=== PATIENT | female | born 1955 | race Caucasian/White ===

== ENCOUNTER → 2021-05-21 11:47 | Outpatient (CLI) | payer MEDICARE, SELFPAY ==
[2021-05-21 21:53] LABS: Vitamin B12 300 pg/mL (239-931)
== END ==
PROVIDERS: PCP Physician Assistant; Visit Provider Physician Assistant
DX: M19.90 Unspecified osteoarthritis, unspecified site (principal)
CPT/HCPCS: 82607

== ENCOUNTER → 2021-09-10 08:03 | Outpatient (CLI) | payer MEDICARE, SELFPAY ==
[2021-09-10 18:54] LABS: Add Manual Diff / Slide Review NO; Basophils Absolute Auto 0 /uL (0-100); Basophils Percent Auto 0.3 % (0-2); Eosinophils Absolute Auto 0 /uL (0-450); Eosinophils Percent Auto 0.9 % (2-4); Hematocrit 37.4 % (36-46); Hemoglobin 11.9 g/dL (12.0-16.0); Lymphocytes Absolute Auto 1200 /uL (1100-4500); Lymphocytes Percent Auto 27.2 % (25-40); Mean Corpuscular HGB Conc 31.9 % (30-36); Mean Corpuscular Hemoglobin 28.5 PG (26-34); Mean Corpuscular Volume 89.5 fL (80-100); Monocytes Absolute Auto 300 /uL (0-900); Monocytes Percent Auto 7.1 % (3-14); Neutrophils Absolute Auto 2800 /uL (1500-7000); Neutrophils Percent Auto 64.5 % (50-75); Platelet Count 230 X10^3/uL (150-400); Red Blood Cell Count 4.18 X10^6/uL (4.0-5.2); Red Cell Distribution Width 16.5 % (11.6-14.8); White Blood Cell Count 4.4 X10^3/uL (4.5-11.0)
[2021-09-10 19:00] LABS: Alanine Aminotransferase 17 IU/L (<35); Albumin 3.9 g/dL (3.5-5.0); Albumin Globulin Ratio 1.5 (1.0-2.8); Alkaline Phosphatase 72 U/L (38-126); Aspartate Aminotransferase 23 IU/L (14-36); Bilirubin Total 0.3 mg/dL (0.2-1.3); Blood Urea Nitrogen 15 mg/dL (7-17); Calcium 8.8 mg/dL (8.4-10.2); Carbon Dioxide 25 mmol/L (22-32); Chloride 109 mmol/L (98-107); Cholesterol 168 mg/dL (140-199); Estimated Glomerular Filt Rate > 60.0 mL/min (>60); Globulin 2.6 g/dL (1.7-4.1); Glucose 123 mg/dL (80-110); HDL Cholesterol 59 mg/dL (40-60); HEMOLYSIS < 15 (0-50); LDL Cholesterol Calculated 95 mg/dL (<100); Potassium 3.9 mmol/L (3.4-5.1); Sodium 143 mmol/L (137-145); Total Protein 6.5 g/dL (6.3-8.2); Triglycerides 68 mg/dL (35-150)
[2021-09-10 19:05] LABS: Hemoglobin A1C% w Est Avg Glu 5.6 % (4.0-6.0)
[2021-09-10 19:57] LABS: Vitamin B12 994 pg/mL (239-931)
[2021-09-11 20:10] LABS: Hep C Virus Ab w/Reflex Quant NEGATIVE s/c (NEGATIVE)
== END ==
PROVIDERS: PCP Physician Assistant; Visit Provider Physician Assistant
DX: Z11.59 Encounter for screening for other viral diseases (principal); Z13.1 Encounter for screening for diabetes mellitus; E53.8 Deficiency of other specified B group vitamins; F41.8 Other specified anxiety disorders; R53.83 Other fatigue; Z13.220 Encounter for screening for lipoid disorders
CPT/HCPCS: 80053; 80061; 82607; 83036; 84443; 85025; 86803

== ENCOUNTER → 2021-09-12 11:04 | Outpatient (CLI) | payer MEDICARE, SELFPAY ==
[2021-09-12 19:01] LABS: Erythrocyte Sedimentation Rate 21 MM/HR (0-20)
[2021-09-14 08:18] LABS: RPR Screen Non Reactive (Non Reactive)
[2021-09-18 05:58] LABS: Rheumatoid Factor < 8.6 IU/mL (<12.0)
== END ==
PROVIDERS: PCP Physician Assistant; Visit Provider Family Medicine
DX: D72.819 Decreased white blood cell count, unspecified (principal); E53.8 Deficiency of other specified B group vitamins; M19.90 Unspecified osteoarthritis, unspecified site; M79.641 Pain in right hand; R53.83 Other fatigue
CPT/HCPCS: 85651; 86430; 86592

== ENCOUNTER → 2022-01-27 13:34 | Outpatient (CLI) | payer MEDICARE, SELFPAY ==
[2022-01-27 19:26] LABS: Add Manual Diff / Slide Review NO; Basophils Absolute Auto 0 /uL (0-100); Basophils Percent Auto 0.2 % (0-2); Eosinophils Absolute Auto 0 /uL (0-450); Eosinophils Percent Auto 0.7 % (2-4); Hematocrit 36.5 % (36-46); Hemoglobin 11.7 g/dL (12.0-16.0); Lymphocytes Absolute Auto 1200 /uL (1100-4500); Lymphocytes Percent Auto 27.5 % (25-40); Mean Corpuscular HGB Conc 32.2 % (30-36); Mean Corpuscular Hemoglobin 28.3 PG (26-34); Monocytes Absolute Auto 300 /uL (0-900); Monocytes Percent Auto 7.8 % (3-14); Neutrophils Absolute Auto 2700 /uL (1500-7000); Neutrophils Percent Auto 63.8 % (50-75); Platelet Count 228 X10^3/uL (150-400); Red Blood Cell Count 4.15 X10^6/uL (4.0-5.2); Red Cell Distribution Width 15.6 % (11.6-14.8); White Blood Cell Count 4.3 X10^3/uL (4.5-11.0)
[2022-01-27 19:44] LABS: Alanine Aminotransferase 16 IU/L (<35); Albumin Globulin Ratio 1.4 (1.0-2.8); Alkaline Phosphatase 78 U/L (38-126); Aspartate Aminotransferase 20 IU/L (14-36); BUN Creatinine Ratio 14.5 (6-22); Bilirubin Total 0.4 mg/dL (0.2-1.3); Blood Urea Nitrogen 11 mg/dL (7-17); Calcium 8.7 mg/dL (8.4-10.2); Carbon Dioxide 26 mmol/L (22-32); Chloride 110 mmol/L (98-107); Estimated Glomerular Filt Rate > 60.0 mL/min (>60); Globulin 2.8 g/dL (1.7-4.1); Glucose 102 mg/dL (80-110); HEMOLYSIS < 15 (0-50); Potassium 3.9 mmol/L (3.4-5.1); Sodium 142 mmol/L (137-145); Total Protein 6.8 g/dL (6.3-8.2)
[2022-01-27 20:05] LABS: Free T4, Direct Thyroxine 1.17 ng/dL (0.78-2.19)
[2022-01-27 20:32] LABS: Vitamin B12 556 pg/mL (239-931)
== END ==
PROVIDERS: PCP Physician Assistant; Visit Provider Physician Assistant
DX: R53.83 Other fatigue (principal); E53.8 Deficiency of other specified B group vitamins
CPT/HCPCS: 80053; 82607; 84439; 84443; 85025

== ENCOUNTER 2022-03-24 11:32 | Emergency (ER) | payer MEDICARE, SELFPAY ==
[2022-03-24 11:45] VITALS: BP 176/78; PULSE 68; RESP 15; TEMP 36.8; O2SAT 99; BMI 38.2
--- NOTE | 2022-03-24 11:56 | DI.US.S_ITS ---
PROCEDURE: US PERIPH VENOUS LOW EXTREM BI INDICATIONS: lower extremity swelling TECHNIQUE: Real-time imaging, as well as color and pulse Doppler interrogation, were performed of the deep veins of both legs from the inguinal ligament to the popliteal fossa. COMPARISON: None. FINDINGS: Right: The common femoral, femoral and popliteal veins are normally compressible, and free of intraluminal thrombus. Color and pulse Doppler demonstrate normal phasic intravascular flow. There is normal augmentation response to distal compression maneuver. Left: The common femoral, femoral and popliteal veins are normally compressible, and free of intraluminal thrombus. Color and pulse Doppler demonstrate normal phasic intravascular flow. There is normal augmentation response to distal compression maneuver. IMPRESSION: No deep vein thrombosis of the bilateral lower extremities. Dictated by: Kasia Roth M.D. on 03/24/2022 at 12:34 Approved by: Kasia Roth M.D. on 03/24/2022 at 12:35
--- NOTE | 2022-03-24 12:25 | DI.RAD.S_ITS ---
PROCEDURE: XR CHEST 1V INDICATIONS: pedal edema TECHNIQUE: One view of the chest was acquired. COMPARISON: None. FINDINGS: Surgical changes and devices: None. Lungs and pleura: Lungs are clear. No pleural effusions or pneumothorax. Mediastinum: Mediastinal contours appear normal. Heart size is enlarged. Bones and chest wall: No suspicious bony lesions. Overlying soft tissues appear unremarkable. IMPRESSION: Cardiomegaly. No acute pulmonary findings. Dictated by: Kasia Roth M.D. on 03/24/2022 at 13:09 Approved by: Kasia Roth M.D. on 03/24/2022 at 13:09
--- NOTE | 2022-03-24 12:26 | ED_ITS ---
HPI - Extremity Problem <J Luis Clark PA-C - Last Filed: 03/24/22 13:58> General Chief complaint: Extremity Problem,Nontraumatic Stated complaint: Swolen legs, ref from phys, potential blood clot Time Seen by Provider: 03/24/22 11:56 Source: patient Mode of arrival: Ambulatory History of Present Illness HPI Narrative: Patient is a 66-year-old female who presents to the ED from the patient's record center coordinator clinic. The physician the patient was seen in recognize that she had some swelling in her lower legs and suggested that she present to the ED for evaluation. Patient reports that she recently had travel overseas to [place] and has been traveling quite extensively. She states that she has a history of swollen legs in the past however most of the time the swelling has resolved. Today she presents to the ED with distal complaint of swelling in her lower extremities. She denies any differences between the left and the right they both are equally swollen. She has no history of previous blood clot or PE or FL or CVA. She is not on any current blood thinners she denies any history of congestive heart failure. She is currently seeing her record center coordinator for GERD and diarrhea. She they are scheduling endoscopy and a colonoscopy to evaluate both these conditions. Patient denies any chest pain denies any shortness of breath denies any cough denies any fever. Related Data Home Medications Medication Instructions Recorded Confirmed acyclovir 5 % topical cream 1 applic topical 5XD 03/11/21 04/02/22 diclofenac sodium 1 % topical gel 4 g topical BID PRN 03/11/21 04/02/22 (Arthritis Pain (diclofenac)) Previous Rx's Medication Instructions Recorded azelastine 205.5 mcg (0.15 %) 1 spray intranasal BID #30 mL 07/31/21 nasal spray fluoxetine 20 mg tablet 60 mg PO DAILY #90 tabs 10/30/21 pramipexole 0.125 mg tablet 0.375 mg PO BEDTIME #270 tabs 10/30/21 topiramate 25 mg tablet 75 mg PO BID chronic migrain #180 10/30/21 tabs valacyclovir 500 mg tablet 500 mg PO DAILY #30 tabs 10/30/21 esomeprazole magnesium 40 mg 40 mg PO BID #60 caps 01/20/22 capsule,delayed release ascorbic acid (vitamin C) 500 mg 500 mg PO DAILY #30 tabs 02/03/22 tablet ferrous sulfate 325 mg (65 mg 325 mg PO DAILY #30 tabs 02/03/22 iron) tablet (FeroSul) hydrochlorothiazide 25 mg tablet 25 mg PO DAILY #30 tabs 04/02/22 Allergies Allergy/AdvReac Type Severity Reaction Status Date / Time calcium Allergy Mild PAIN/DIARRHEA-HIGH Verified 03/24/22 11:50 DOSES CAUSES DIARRHEA pentazocine Allergy Mild HIVES; Verified 03/24/22 11:50 NAUSEA AND VOMITING lactose Allergy Unknown PAIN/DIARRH Verified 03/24/22 11:50 EA shellfish derived Allergy Unknown PAIN/DIARRH Verified 03/24/22 11:50 EA Sulfa (Sulfonamide AdvReac Unknown RASH Verified 03/24/22 11:50 Antibiotics) BANANA Allergy Unknown SWELLING Uncoded 09/08/21 10:44 Review of Systems <J Luis Clark PA-C - Last Filed: 03/24/22 13:58> Review of Systems ROS Unobtainable: All systems reviewed & are unremarkable except as noted in HPI and below Constitutional Constitutional: Denies chills, Denies fatigue, Denies fever(s), Denies frequent falls, Denies lethargy and Denies weakness Eyes Eyes: Denies change in vision, Denies eye discharge, Denies irritation and Denies loss of vision ENT Ears, Nose, Mouth, and Throat: Denies change in voice, Denies dizziness, Denies neck pain, Denies sore throat and Denies throat swelling Cardiovascular Cardiovascular: Denies chest pain, Denies irregular heart rhythm, Reports leg edema, Denies lightheadedness, Denies palpitations, Denies dyspnea, Denies dyspnea on exertion and Denies orthopnea Respiratory Respiratory: Denies cough, Denies dyspnea, Denies dyspnea on exertion and Denies wheezing Gastrointestinal Gastrointestinal: Denies abdominal pain, Denies change in bowel habits, Denies diarrhea, Denies nausea and Denies vomiting Genitourinary Genitourinary: Denies hematuria, Denies flank pain, Denies urinary incontinence and Denies urinary urgency Musculoskeletal Musculoskeletal: Denies back pain, Denies muscle weakness, Denies neck pain, Denies numbness and Denies tingling Integumentary/Breasts Skin/Breast: Denies pruritus, Denies erythema, Denies rash and Denies wounds Neurologic Neurologic: Denies behavioral changes, Denies confusion, Denies dizziness, Denies frequent falls, Denies loss of vision, Denies numbness, Denies tingling and Denies weakness Psychiatric Psychiatric: Denies anxiety, Denies behavioral changes, Denies confusion, Denies depression, Denies homicidal ideation and Denies suicidal ideation Endocrine Endocrine: Denies fatigue, Denies flushing and Denies palpitations Hematologic/Lymphatic Hematologic/Lymphatic: Denies easy bruising Allergic/Immunologic Allergic/Immunologic: Denies urticaria, Denies throat swelling and Denies wheezing Patient History <J Luis Clark PA-C - Last Filed: 03/24/22 13:58> Medical History (Updated 04/08/22 @ 00:01 by ) Arthritis Breast pain Chicken pox Chronic GERD Fractures Hearing loss Herpes simplex vulvovaginitis Measles Mumps Right elbow pain Rubella Sleep apnea Surgical History Anesthesia History of appendectomy (~2007) History of cataract removal with insertion of prosthetic lens (~2011) History of mandibular surgery (~2009) Family History Father Cancer Mother Cancer Multiple sclerosis Social History Smoking Status: Never smoker Smoking Status: Never smoker alcohol intake frequency: a few times a week Substance Use Type: does not use Exam <J Luis Clark PA-C - Last Filed: 03/24/22 13:58> Initial Vital Signs Initial Vital Signs: Vital Signs Temperature 98.3 F 03/24/22 11:45 Pulse Rate 68 03/24/22 11:45 Respiratory Rate 15 03/24/22 11:45 Blood Pressure 176/78 H 03/24/22 11:45 Pulse Oximetry 99 03/24/22 11:45 Oxygen Delivery Method 03/24/22 11:45 Const General: cooperative, healthy appearing, comfortable and well developed Nutritional Appearance: average body habitus Orientation: Orientation [facility] Head: normal to inspection, normocephalic and atraumatic Ears: hearing grossly normal bilaterally and external ears normal Nose: external nose normal Face and sinus: normal facial exam Mouth: oral mucosae normal Teeth and gingiva: dentition normal Throat: posterior oropharynx normal Eyes General: Yes appearance normal, both eyes and all related structures Pupils: PERRL Resp Effort & Inspection: normal respiratory effort and able to speak in complete sentences Auscultation: clear to auscultation bilaterally Cardio Palpation: normal PMI Rate: regular rate Rhythm: regular rhythm Heart Sounds: S1 normal and S2 normal GI Inspection: normal to inspection Palpation: soft Percussion: normal to percussion Auscultation: normal bowel sounds Extrem Right lower extremity: edema Details: non-pitting and 2+ and lower leg Left lower extremity: edema Details: non-pitting and 2+ and lower leg <Carlos Alberto Thompson MD - Last Filed: 05/01/22 01:24> Initial Vital Signs Initial Vital Signs: Vital Signs Temperature 98.3 F 03/24/22 11:45 Pulse Rate 68 03/24/22 11:45 Respiratory Rate 15 03/24/22 11:45 Blood Pressure 176/78 H 03/24/22 11:45 Pulse Oximetry 99 03/24/22 11:45 Oxygen Delivery Method 03/24/22 11:45 Course <J Luis Clark PA-C - Last Filed: 03/24/22 13:58> Orders Ordered: ED Orders 03/24/22 11:56 US periph venous low extrem bi Stat 03/24/22 12:25 Chest [XR chest 1V] Stat EKG-12 Lead Stat 03/24/22 12:40 BNP [NT-proBNP (BNP-Adult 18+)] Stat CBC Auto Diff [Complete Blood Count AUTO DIFF] Stat CMP [Comprehensive Metabolic Panel] Stat DD [D Dimer] Stat cardiac panel [Troponin & CK Cardiac Panel] Stat Vital Signs Vital signs: Vital Signs - 8 hr 03/24/22 11:45 Temperature 98.3 F Pulse Rate 68 Respiratory Rate 15 Blood Pressure 176/78 H Pulse Oximetry 99 <Carlos Alberto Thompson MD - Last Filed: 05/01/22 01:24> Orders Ordered: ED Orders 03/24/22 11:56 US periph venous low extrem bi Stat 03/24/22 12:25 Chest [XR chest 1V] Stat EKG-12 Lead Stat 03/24/22 12:40 BNP [NT-proBNP (BNP-Adult 18+)] Stat CBC Auto Diff [Complete Blood Count AUTO DIFF] Stat CMP [Comprehensive Metabolic Panel] Stat DD [D Dimer] Stat cardiac panel [Troponin & CK Cardiac Panel] Stat Vital Signs Vital signs: Vital Signs - 8 hr 03/24/22 11:45 Temperature 98.3 F Pulse Rate 68 Respiratory Rate 15 Blood Pressure 176/78 H Pulse Oximetry 99 MDM - Extremity (Nontraumatic) <J Luis Clark PA-C - Last Filed: 03/24/22 13:58> Differential Diagnosis Differential diagnosis: Likely lower extremity edema Lab Data Result diagrams: 03/24/22 12:40 03/24/22 12:40 Labs: Lab Results 03/24/22 03/24/22 03/24/22 Range/Units 12:40 12:40 12:40 WBC 5.3 (4.5-11.0) X10^3/uL RBC 3.93 L (4.0-5.2) X10^6/uL Hgb 11.3 L (12.0-16.0) g/dL Hct 34.5 L (36-46) % MCV 87.6 (80-100) fL MCH 28.8 (26-34) PG MCHC 32.9 (30-36) % RDW 15.4 H (11.6-14.8) % Plt Count 237 (150-400) X10^3/uL Neut % (Auto) 60.9 (50-75) % Lymph % (Auto) 30.4 (25-40) % [facility] % (Auto) 7.7 (3-14) % Eos % (Auto) 0.7 L (2-4) % Baso % (Auto) 0.3 (0-2) % Neut # (Auto) 3300 (1955-1586) /uL Lymph # (Auto) 1600 (4578-9858) /uL [facility] # (Auto) 400 (0-900) /uL Eos # (Auto) 0 (0-450) /uL Baso # (Auto) 0 (0-100) /uL D-Dimer 285 H (<230) ng/mL Sodium 144 (137-145) mmol/L Potassium 3.6 (3.4-5.1) mmol/L Chloride 110 H (98-107) mmol/L Carbon Dioxide 25 (22-32) mmol/L BUN 15 (7-17) mg/dL Creatinine 0.67 (0.52-1.04) mg/dL Estimated GFR > 60 (>60) mL/min BUN/Creatinine Ratio 22.4 H (6-22) Glucose 87 (80-110) mg/dL Calcium 8.3 L (8.4-10.2) mg/dL Total Bilirubin 0.3 (0.2-1.3) mg/dL AST 22 (14-36) IU/L ALT 18 (<35) IU/L Alkaline Phosphatase 69 (38-126) U/L Total Creatine Kinase 44 (30-135) U/L CK-MB (CK-2) TNP CK-MB (CK-2) Rel Index TNP Troponin I < 0.012 (0.01-0.034) ng/mL NT-Pro-B Natriuret Pep 364 H (<125) pg/mL Total Protein 6.8 (6.3-8.2) g/dL Albumin 3.9 (3.5-5.0) g/dL Globulin 2.9 (1.7-4.1) g/dL Albumin/Globulin Ratio 1.3 (1.0-2.8) Imaging Data US - DVT: Radiologist's Impression: [place] [address] Ultrasound Report Signed Patient: Sofi Villatoro MR#: [id number] : 1955 Acct:[id number] Age/Sex: 66 / F Date of Service: 03/24/22 Loc: ED Accession Number: [id number] ?? Procedure: US periph venous low extrem bi Ordering Provider: Carlos Alberto Thompson MD PROCEDURE:? US PERIPH VENOUS LOW EXTREM BI ? INDICATIONS:? lower extremity swelling ? TECHNIQUE:? Real-time imaging, as well as color and pulse Doppler interrogation, were performed of the deep veins of both legs from the inguinal ligament to the popliteal fossa.? ? COMPARISON:? None. ? FINDINGS:? ? Right: The common femoral, femoral and popliteal veins are normally compressib le, and free of intraluminal thrombus.? Color and pulse Doppler demonstrate normal phasic intravascular flow.? There is normal augmentation response to distal compression maneuver.? ? Left: The common femoral, femoral and popliteal veins are normally compressible, and free of intraluminal thrombus.? Color and pulse Doppler demonstrate normal phasic intravascular flow.? There is normal augmentation response to distal compression maneuver.? ? ? IMPRESSION:? No deep vein thrombosis of the bilateral lower extremities. ? ? Dictated by: Kasia Roth M.D. on 03/24/2022 at 12:34 ? ? Approved by: Kasia Roth M.D. on 03/24/2022 at 12:35?? Chest x-ray: Radiologist's Impression: [address] [address] XRay Report Signed Patient: Sofi Villatoro MR#: [id number] : 1955 Acct:[id number] Age/Sex: 66 / F Date of Service: 03/24/22 Loc: ED Accession Number: [id number] ?? Procedure: XR chest 1V Ordering Provider: J Luis Clark P.A-C PROCEDURE:? XR CHEST 1V ? INDICATIONS:? pedal edema ? TECHNIQUE:? One view of the chest was acquired.? ? COMPARISON:? None. ? FINDINGS:? ? Surgical changes and devices:? None.? ? Lungs and pleura:? Lungs are clear.? No pleural effusions or pneumothorax.? ? Mediastinum:? Mediastinal contours appear normal.? Heart size is enlarged. ? Bones and chest wall:? No suspicious bony lesions.? Overlying soft tissues appear unremarkable.? ? IMPRESSION:? Cardiomegaly.? No acute pulmonary findings.? ? ? Dictated by: Kasia Roth M.D. on 03/24/2022 at 13:09 ? ? Approved by: Kasia Roth M.D. on 03/24/2022 at 13:09?? MDM Narrative Medical decision making narrative: The patient was evaluated today for swelling of the lower extremities. Patient denied any other symptoms no associated pain redness swelling in both lower extremities was equal. She states that she has had a recent long distance travel from [place] with long episodes of sitting. She states that in the past that she has been able to elevate her extremities and the swelling has gone down but this time has not been affective. Her workup does demonstrate early signs of mild congestive heart failure of which patient does not have any symptoms of chest pain shortness of breath orthopnea. I think it is feasible to prescribe a thiazide diuretic once daily and recommend compression stockings and discharge her home and have her follow-up with her PCP. I spoke with patient about the treatment options she was agreeable she does have compression stockings at home of which she has used in the past and will agree to apply and elevate her feet. Prescription for hydrochlorothiazide was sent to her pharmacy to be taken once daily and she will follow-up with her PCP for further refills and evaluation. <Carlos Alberto Thompson MD - Last Filed: 05/01/22 01:24> Lab Data Labs: Lab Results 03/24/22 03/24/22 03/24/22 Range/Units 12:40 12:40 12:40 WBC 5.3 (4.5-11.0) X10^3/uL RBC 3.93 L (4.0-5.2) X10^6/uL Hgb 11.3 L (12.0-16.0) g/dL Hct 34.5 L (36-46) % MCV 87.6 (80-100) fL MCH 28.8 (26-34) PG MCHC 32.9 (30-36) % RDW 15.4 H (11.6-14.8) % Plt Count 237 (150-400) X10^3/uL Neut % (Auto) 60.9 (50-75) % Lymph % (Auto) 30.4 (25-40) % [facility] % (Auto) 7.7 (3-14) % Eos % (Auto) 0.7 L (2-4) % Baso % (Auto) 0.3 (0-2) % Neut # (Auto) 3300 (3150-8888) /uL Lymph # (Auto) 1600 (1979-5828) /uL [facility] # (Auto) 400 (0-900) /uL Eos # (Auto) 0 (0-450) /uL Baso # (Auto) 0 (0-100) /uL D-Dimer 285 H (<230) ng/mL Sodium 144 (137-145) mmol/L Potassium 3.6 (3.4-5.1) mmol/L Chloride 110 H (98-107) mmol/L Carbon Dioxide 25 (22-32) mmol/L BUN 15 (7-17) mg/dL Creatinine 0.67 (0.52-1.04) mg/dL Estimated GFR > 60 (>60) mL/min BUN/Creatinine Ratio 22.4 H (6-22) Glucose 87 (80-110) mg/dL Calcium 8.3 L (8.4-10.2) mg/dL Total Bilirubin 0.3 (0.2-1.3) mg/dL AST 22 (14-36) IU/L ALT 18 (<35) IU/L Alkaline Phosphatase 69 (38-126) U/L Total Creatine Kinase 44 (30-135) U/L CK-MB (CK-2) TNP CK-MB (CK-2) Rel Index TNP Troponin I < 0.012 (0.01-0.034) ng/mL NT-Pro-B Natriuret Pep 364 H (<125) pg/mL Total Protein 6.8 (6.3-8.2) g/dL Albumin 3.9 (3.5-5.0) g/dL Globulin 2.9 (1.7-4.1) g/dL Albumin/Globulin Ratio 1.3 (1.0-2.8) Discharge Plan Departure Patient Disposition: Home Clinical Impression: Lower extremity edema Instructions: DI for Edema Due to Venous Stasis Activity Restrictions/Additional Instructions: You were seen today for swelling in your lower extremities. The ultrasound did not show any evidence of a DVT and based on your blood work I would recommend a once daily diuretic as well as compression stockings. He states that you have some at home that you can apply and prescription was sent to [facility] at your request. You can worm picker your prescription at your earliest convenience if her symptoms worsen or you have any other for further concerns you can return to the ED otherwise you can follow-up with her PCP. Thank you for the opportunity to care for you today. Prescriptions: No Action ferrous sulfate [FeroSul] 325 mg (65 mg iron) tablet 325 mg PO DAILY Qty: 30 2RF Rx Instructions: Take with vitamin C ascorbic acid (vitamin C) 500 mg tablet 500 mg PO DAILY Qty: 30 2RF Rx Instructions: Take with iron azelastine 205.5 mcg (0.15 %) spray,non-aerosol 1 spray intranasal BID Qty: 30 8RF Rx Instructions: administer into each nostril fluoxetine 20 mg tablet 60 mg PO DAILY Qty: 90 5RF pramipexole 0.125 mg tablet 0.375 mg PO BEDTIME Qty: 270 1RF topiramate 25 mg tablet 75 mg PO BID Qty: 180 5RF Rx Instructions: take 3 tablets twice daily valacyclovir 500 mg tablet 500 mg PO DAILY Qty: 30 5RF Rx Instructions: For outbreak, increase to 500mg twice daily for 3-5 days. esomeprazole magnesium 40 mg capsule,delayed release(DR/EC) 40 mg PO BID Qty: 60 2RF hydrochlorothiazide 25 mg tablet 25 mg PO DAILY Qty: 30 5RF diclofenac sodium [Arthritis Pain (diclofenac)] 1 % gel 4 g topical BID PRN Rx Instructions: apply to single knee, ankle, foot; for foot includes sole/toes/top of foot acyclovir 5 % cream 1 applic topical 5XD Referrals: Lynn Sher PA-C [Primary Care Provider] - <Carlos Alberto Thompson MD - Last Filed: 05/01/22 01:24> Cosign ED Attending Cosignature Attestation: I was immediately available in the department for consultation. ?This documentation has been reviewed and I agree with assessment and plan. Supervised by Carlos Alberto Thompson MD
[2022-03-24 12:57] LABS: Add Manual Diff / Slide Review NO; Basophils Absolute Auto 0 /uL (0-100); Basophils Percent Auto 0.3 % (0-2); Eosinophils Absolute Auto 0 /uL (0-450); Eosinophils Percent Auto 0.7 % (2-4); Hematocrit 34.5 % (36-46); Hemoglobin 11.3 g/dL (12.0-16.0); Lymphocytes Absolute Auto 1600 /uL (1100-4500); Lymphocytes Percent Auto 30.4 % (25-40); Mean Corpuscular HGB Conc 32.9 % (30-36); Mean Corpuscular Hemoglobin 28.8 PG (26-34); Mean Corpuscular Volume 87.6 fL (80-100); Monocytes Absolute Auto 400 /uL (0-900); Monocytes Percent Auto 7.7 % (3-14); Neutrophils Absolute Auto 3300 /uL (1500-7000); Neutrophils Percent Auto 60.9 % (50-75); Platelet Count 237 X10^3/uL (150-400); Red Blood Cell Count 3.93 X10^6/uL (4.0-5.2); Red Cell Distribution Width 15.4 % (11.6-14.8); White Blood Cell Count 5.3 X10^3/uL (4.5-11.0)
[2022-03-24 13:07] LABS: D Dimer 285 ng/mL (<230)
[2022-03-24 13:12] LABS: Alanine Aminotransferase 18 IU/L (<35); Albumin 3.9 g/dL (3.5-5.0); Albumin Globulin Ratio 1.3 (1.0-2.8); Alkaline Phosphatase 69 U/L (38-126); Aspartate Aminotransferase 22 IU/L (14-36); BUN Creatinine Ratio 22.4 (6-22); Bilirubin Total 0.3 mg/dL (0.2-1.3); Blood Urea Nitrogen 15 mg/dL (7-17); Calcium 8.3 mg/dL (8.4-10.2); Carbon Dioxide 25 mmol/L (22-32); Chloride 110 mmol/L (98-107); Creatine Kinase 44 U/L (30-135); Estimated Glomerular Filt Rate > 60 mL/min (>60); Globulin 2.9 g/dL (1.7-4.1); Glucose 87 mg/dL (80-110); HEMOLYSIS < 15 (0-50); Potassium 3.6 mmol/L (3.4-5.1); Sodium 144 mmol/L (137-145); Total Protein 6.8 g/dL (6.3-8.2)
[2022-03-24 13:24] LABS: NT-proBNP (BNP-Adult 18+) 364 pg/mL (<125); Troponin I < 0.012 ng/mL (0.01-0.034)
[2022-03-24 14:04] VITALS: BP 171/72; PULSE 72; O2SAT 96
== END 2022-03-24 14:05 | disposition home or self-care (01) ==
PROVIDERS: Emergency Provider Physician Assistant; PCP Physician Assistant
DX: R60.0 Localized edema (principal)
CPT/HCPCS: 36415; 71045; 80053; 82550; 83880; 84484; 85025; 85379; 93005; 93010; 93970; 99283

== ENCOUNTER → 2022-04-02 11:32 | Outpatient (CLI) | payer MEDICARE, SELFPAY ==
[2022-04-02 18:59] LABS: BUN Creatinine Ratio 22.8 (6-22); Blood Urea Nitrogen 18 mg/dL (7-17); Calcium 8.5 mg/dL (8.4-10.2); Carbon Dioxide 31 mmol/L (22-32); Chloride 105 mmol/L (98-107); Estimated Glomerular Filt Rate > 60 mL/min (>60); Glucose 114 mg/dL (80-110); HEMOLYSIS < 15 (0-50); Potassium 3.3 mmol/L (3.4-5.1); Sodium 143 mmol/L (137-145)
== END ==
PROVIDERS: PCP Physician Assistant; Visit Provider Physician Assistant
DX: I50.9 Heart failure, unspecified (principal); R60.0 Localized edema
CPT/HCPCS: 80048

== ENCOUNTER → 2022-04-09 12:04 | Outpatient (CLI) | payer MEDICARE, SELFPAY ==
[2022-04-09 18:33] LABS: Add Manual Diff / Slide Review NO; Basophils Absolute Auto 0 /uL (0-100); Basophils Percent Auto 0.4 % (0-2); Eosinophils Absolute Auto 0 /uL (0-450); Eosinophils Percent Auto 0.7 % (2-4); Hematocrit 36.8 % (36-46); Hemoglobin 12.1 g/dL (12.0-16.0); Lymphocytes Absolute Auto 1400 /uL (1100-4500); Mean Corpuscular HGB Conc 32.8 % (30-36); Mean Corpuscular Hemoglobin 28.6 PG (26-34); Mean Corpuscular Volume 87.2 fL (80-100); Monocytes Absolute Auto 400 /uL (0-900); Monocytes Percent Auto 8.3 % (3-14); Neutrophils Absolute Auto 3300 /uL (1500-7000); Neutrophils Percent Auto 63.6 % (50-75); Platelet Count 231 X10^3/uL (150-400); Red Blood Cell Count 4.22 X10^6/uL (4.0-5.2); White Blood Cell Count 5.2 X10^3/uL (4.5-11.0)
[2022-04-09 18:34] LABS: BUN Creatinine Ratio 20.7 (6-22); Blood Urea Nitrogen 17 mg/dL (7-17); Calcium 8.7 mg/dL (8.4-10.2); Carbon Dioxide 27 mmol/L (22-32); Chloride 106 mmol/L (98-107); Estimated Glomerular Filt Rate > 60 mL/min (>60); Glucose 81 mg/dL (80-110); HEMOLYSIS < 15 (0-50); Potassium 3.4 mmol/L (3.4-5.1); Sodium 143 mmol/L (137-145)
[2022-04-09 18:40] LABS: HEMOLYSIS < 15 (0-50); Iron 65 ug/dL (37-170)
[2022-04-09 18:52] LABS: Percent Iron Saturation 21 % (15-50); Total Iron Binding Capacity 305 ug/dL (265-497); Transferrin 215 mg/dL (206-381)
[2022-04-09 19:10] LABS: Ferritin 43 ng/mL (11-264)
== END ==
PROVIDERS: PCP Physician Assistant; Visit Provider Physician Assistant
DX: D64.9 Anemia, unspecified (principal); I10 Essential (primary) hypertension; I50.9 Heart failure, unspecified
CPT/HCPCS: 80048; 82728; 83540; 83550; 85025

== ENCOUNTER → 2022-05-27 12:28 | Outpatient (CLI) | payer MEDICARE, SELFPAY ==
[2022-05-27 20:33] LABS: Add Manual Diff / Slide Review NO; Basophils Absolute Auto 0 /uL (0-100); Basophils Percent Auto 0.4 % (0-2); Eosinophils Absolute Auto 0 /uL (0-450); Eosinophils Percent Auto 0.8 % (2-4); Hemoglobin 11.8 g/dL (12.0-16.0); Lymphocytes Absolute Auto 1600 /uL (1100-4500); Lymphocytes Percent Auto 29.7 % (25-40); Mean Corpuscular HGB Conc 32.8 % (30-36); Mean Corpuscular Hemoglobin 28.8 PG (26-34); Mean Corpuscular Volume 87.8 fL (80-100); Monocytes Absolute Auto 400 /uL (0-900); Monocytes Percent Auto 6.8 % (3-14); Neutrophils Absolute Auto 3300 /uL (1500-7000); Neutrophils Percent Auto 62.3 % (50-75); Platelet Count 256 X10^3/uL (150-400); Red Cell Distribution Width 15.6 % (11.6-14.8); White Blood Cell Count 5.3 X10^3/uL (4.5-11.0)
[2022-05-28 05:56] LABS: Ferritin 45 ng/mL (11-264)
[2022-05-28 06:10] LABS: Vitamin B12 Reflex MMA if <400 776 pg/mL (239-931)
== END ==
PROVIDERS: PCP Physician Assistant; Visit Provider Physician Assistant
DX: D64.9 Anemia, unspecified (principal); E53.8 Deficiency of other specified B group vitamins
CPT/HCPCS: 82607; 82728; 85025

== ENCOUNTER → 2022-06-26 10:30 | Outpatient (CLI) | payer MEDICARE, SELFPAY ==
[2022-06-26 11:17] LABS: COVID19 -Nasal RAPID Negative (Negative)
== END ==
PROVIDERS: PCP Physician Assistant; Visit Provider Surgery
DX: Z01.812 Encounter for preprocedural laboratory examination (principal); Z20.822 Contact with and (suspected) exposure to COVID-19
CPT/HCPCS: 87635; C9803

== ENCOUNTER 2022-06-29 11:44 | Day surgery (SDC) | payer MEDICARE, SELFPAY ==
[2022-06-29] VITALS (7 sets, daily range): BP systolic 102–125; BP diastolic 49–70; PULSE 56–66; RESP 16–20; TEMP 36.7–37.4; O2SAT 97–99; BMI 36.6
--- NOTE | 2022-06-29 | PATH_ITS ---
[facility] Accession Number: [id number] . 01 Material submitted: . PART A: duodenum - DUODENUM PART B: gastrointestinal site - ANTRUM PART C: gastrointestinal site - GASTRIC POLYP PART D: colon - ASCENDING COLON POLYP PART E: colon - RANDOM COLON BIOPSIES PART F: colon - SIGMOID POLYP . 01 Diagnosis: A. Duodenum, Biopsy: Duodenal mucosa with no diagnostic abnormality. Negative for active inflammation, features of sprue, dysplasia, or malignancy. . B. Stomach, Antrum, Biopsy: Antral mucosa with mild chronic gastritis. Negative for Helicobacter organisms by immunohistochemistry. Negative for intestinal metaplasia. Negative for dysplasia and malignancy. . C. Stomach, Polyp, Biopsy: Scant superficial gastric epithelium. Negative for intestinal metaplasia. Negative for dysplasia and malignancy. . D. Ascending Colon, Polyp, Biopsy: Tubular adenoma, 2 fragments. . E. Random Colon, Biopsies: Colonic mucosa with no diagnostic abnormality. Negative for active, chronic, and microscopic colitis. Negative for dysplasia and malignancy. . F. Sigmoid Colon, Polyp, Biopsy: Tubular adenoma. [facility] 07/02/2022 1232 Local . 01 Electronically signed: . Mellisa Harris MD, Pathologist NPI- [id number] . 01 Gross description: . Part A: DUODENUM: Received in formalin is 1 fragment(s) of phelan, soft tissue measuring 0.5 x 0.2 x 0.2 cm submitted entirely in 1 cassette(s) Part B: ANTRUM: Received in formalin are 2 fragment(s) of phelan, soft tissue measuring 0.3 x 0.2 x 0.1 cm to 0.2 x 0.1 x 0.1 cm submitted entirely in 1 cassette(s) Part C: GASTRIC POLYP: Received in formalin is 1 fragment(s) of phelan, soft tissue measuring 0.1 x 0.1 x 0.1 cm in aggregate submitted entirely in 1 cassette(s) Minute specimen, may not survive processing. Part D: ASCENDING COLON POLYP: Received in formalin are 2 fragment(s) of phelan, soft tissue measuring 0.3 x 0.2 x 0.1 cm to 0.2 x 0.1 x 0.1 cm submitted entirely in 1 cassette(s) Part E: RANDOM COLON BIOPSIES: Received in formalin are 4 fragment(s) of phelan, soft tissue measuring 0.3 x 0.2 x 0.1 cm to 0.2 x 0.1 x 0.1 cm submitted entirely in 1 cassette(s) Part F: SIGMOID POLYP: Received in formalin is 1 fragment(s) of phelan, soft tissue measuring 0.3 x 0.2 x 0.2 cm submitted entirely in 1 cassette(s) /CPE 06/30/2022 0548 Local . 01 Microscopic: . B. An immunohistochemical stain was performed to evaluate for Helicobacter organisms and is negative. The control stain showed appropriate reactivity. . * This test was developed and its performance characteristics determined by [facility]. It has not been cleared or approved by the U.S. Food and Drug Administration. The FDA has determined that such clearance or approval is not necessary. This test is used for clinical purposes. It should not be regarded as investigational or for research. . 01 Pathologist provided ICD-10: D12.2, D12.5 . 01 CPT . 928859, 143351, 705846, 271409, 715846, 651273, A96177 Specimen Comment: A courtesy copy of this report has been sent to [phone] Performed at: 01 [facility] [address] [place] [address], [place], [place] [id number] MD Ramón Vergara MD Phone: [phone]
--- NOTE | 2022-06-29 12:24 | PM.HP.1 ---
History of Present Illness History of Present Illness Date Patient Seen: 06/29/22 Time Patient Seen: 12:24 Chief complaint: SDC Narrative: I reviewed my recent office note from March 24, 2022. Patient has been experiencing longstanding reflux and chronic diarrhea. I have not seen the labs that I had requested as yet. She reports today for EGD for small bowel biopsies and colonoscopy with random biopsies should everything appear visually normal. Patient History Medical History Arthritis Breast pain Chicken pox Chronic GERD Colon cancer screening Diabetes mellitus screening Encounter for hepatitis C screening test for low risk patient Encounter for immunization Encounter for Medicare annual wellness exam Fractures Hearing loss Herpes simplex vulvovaginitis Lipid screening Measles Mumps Right elbow pain Rubella Sleep apnea Surgical History Anesthesia History of appendectomy (~2007) History of cataract removal with insertion of prosthetic lens (~2011) History of mandibular surgery (~2009) Family & Social History Family History Father Cancer Mother Cancer Multiple sclerosis Tobacco & Substance use: Smoking Status Never smoker alcohol intake frequency a few times a week Substance Use Type does not use Meds Home Medications and Allergies Home Medications Medication Instructions Recorded Confirmed Type acyclovir 5 % topical cream 1 applic topical 5XD 03/11/21 06/29/22 History diclofenac sodium 1 % topical gel 4 g topical BID PRN Pain (Scale 03/11/21 06/29/22 History (Arthritis Pain (diclofenac)) Score 1-3) azelastine 205.5 mcg (0.15 %) 1 spray intranasal BID #30 mL 07/31/21 06/29/22 Rx nasal spray ascorbic acid (vitamin C) 500 mg 500 mg PO DAILY #30 tabs 02/03/22 06/29/22 Rx tablet hydrochlorothiazide 25 mg tablet 25 mg PO DAILY #30 tabs 04/02/22 06/29/22 Rx pramipexole 0.125 mg tablet 0.375 mg PO BEDTIME #270 tabs 05/15/22 06/29/22 Rx sumatriptan 20 mg/actuation nasal 20 mg intranasal Q2H PRN migraine 05/22/22 06/29/22 Rx spray headache #6 ea acetaminophen 650 mg 650 mg PO Q12H 06/11/22 06/29/22 History tablet,extended release (Tylenol 8 Hour) ferrous sulfate 325 mg (65 mg 325 mg PO DAILY #90 tabs 06/11/22 06/29/22 Rx iron) tablet (FeroSul) fluoxetine 20 mg tablet 40 mg PO DAILY #60 tabs 06/11/22 06/29/22 Rx esomeprazole magnesium 40 mg 40 mg PO BID #60 caps 06/25/22 06/29/22 Rx capsule,delayed release valacyclovir 500 mg tablet 500 mg PO DAILY PRN Rash 06/29/22 06/29/22 History Allergies Allergy/AdvReac Type Severity Reaction Status Date / Time calcium Allergy Mild PAIN/DIARRHEA-HIGH Verified 03/24/22 11:50 DOSES CAUSES DIARRHEA pentazocine Allergy Mild HIVES; Verified 03/24/22 11:50 NAUSEA AND VOMITING lactose Allergy Unknown PAIN/DIARRH Verified 03/24/22 11:50 EA shellfish derived Allergy Unknown PAIN/DIARRH Verified 03/24/22 11:50 EA Sulfa (Sulfonamide AdvReac Unknown RASH Verified 03/24/22 11:50 Antibiotics) BANANA Allergy Unknown SWELLING Uncoded 09/08/21 10:44 Review of Systems Review of Systems ROS: Yes All systems reviewed with the patient and are negative except as otherwise documented Exam Const General: cooperative Nutritional Appearance: obese HENMT Head: normal to inspection Eyes General: appearance normal, both eyes and all related structures Neck Neck: normal visual inspection Chest Chest: normal inspection of the chest Resp Effort & Inspection: normal respiratory effort Cardio Rate: regular rate GI Inspection: normal to inspection Skin General: no rashes or lesions noted Neuro General: patient alert and patient awake Extrem General: normal to inspection and no pedal edema Psych Appearance: grossly normal Assessment & Plan Assessment & Plan narrative: 66-year-old female with chronic longstanding reflux that is somewhat refractory to PPI. She additionally is experiencing chronic diarrhea. She has an iron deficiency anemia. EGD and colonoscopy with biopsies are pursued today. Time Spent With Patient Critical Care time: I spent a total of [] minutes of critical care time on this patient's care today; this time is exclusive of procedural time.
--- NOTE | 2022-06-29 12:26 | PM.PREOP ---
Pre-operative Note COVID-19 COVID-19 status: Negative Result date/Date tested (Pos, Neg/Pending): 06/26/22 Criteria for continued procedure: Possibility delay results in more complex future surgery or treatment Interval Note History & Physical reviewed/Exam performed by Physician: Yes Changes to H&P: No ASA Class (for procedural sedation): III
[2022-06-29] MEDS: SODIUM CHLORIDE 0.9% 1,000 ML 125 ML IV (12:42)
--- NOTE | 2022-06-29 14:02 | PM.OP.EC ---
Operative Date/Time/Diagnoses Date of procedure: 06/29/22 Time of procedure: 14:02 Pre-op diagnosis: GERD iron deficiency anemia diarrhea history of unknown histology polyps. Post-op diagnosis: same Procedure & Clinicians Study performed: EGD with biopsies and a colonoscopy with cold forceps polypectomy and random biopsies. Same procedure as scheduled: Yes Indications: GERD iron deficiency anemia diarrhea history of unknown histology colon polyps Surgeon: Sudhakar Montero Procedure Notes SCOAP/Timeout: Done Procedure in detail: After the risks and benefits were explained, written and verbal informed consent was obtained. The patient was brought into the procedure room and placed into the left lateral decubitus position. Please see nurse maintainer sewer and waterworks notes for sedation details. The scope was introduced into the mouth through the bite block and advanced under direct visualization to the 2nd portion of the duodenum. The scope was slowly withdrawn carefully examining the mucosa for any defects or lesions. Retroflexed views were accomplished in the stomach. The stomach was decompressed, the scope was then removed from the patient who demonstrated slightly suboptimal tolerance of the exam. She was briefly apneic and then had some coughing near the and of this portion of the exam. The patient was then turned around a digital rectal examination accomplished. Grade 3 nonbleeding nonthrombosed hemorrhoids were noted. The scope was introduced into the rectum and advanced to the cecum as identified by the appendiceal orifice and ileocecal valve. The terminal ileum was interrogated. The scope was then slowly withdrawn to carefully examine the mucosa for any defects or lesions. Multiple direct views were made through the dentate line for exclusion of pathology. The colon was decompressed. The scope was removed from the patient who tolerated the procedure reasonably well. Scope withdrawal time: 13 minutes Sedation minutes: 43 Complications: none Impression: 1. Duodenum: This was visually normal from the bulb through to the 2nd portion. Random D2 biopsies were taken for exclusion of sprue. 2. Stomach: Patient had no evidence of outlet obstruction no ulcers no mass lesions. Mild gastropathy was appreciated in the antral region and biopsies were acquired for exclusion of H pylori or other pathology. Retroflexed views of the LES were unremarkable. Patient had a small diminutive polyp in the gastric cardia region which was addressed with cold forceps. He small sliding hiatal hernia was noted during today's exam. 3. Esophagus: The squamocolumnar junction correlated with the top of the gastric folds. There was no evidence of any acute erosive changes no strictures no mass lesions. As mentioned above subtle sliding hiatal hernia was noted. The remainder of the esophagus was unremarkable. 4. Terminal ileum: This was visually normal. 5. Colon: There was a diminutive 3 mm polyp in the ascending colon removed with cold forceps. A 2nd 4-5 mm polyp was identified in the sigmoid also removed with cold forceps. The patient had some diverticulosis noted in the sigmoid region. Navigation was challenging. The patient had a tortuous right and left colon. Random colon biopsies were taken for exclusion of microscopic colitis. No evidence of macroscopic colitis was seen today. Endoscopic diagnosis 1. Small sliding hiatal hernia 2. Gastropathy 3. Diminutive gastric polyp 4. Small colon polyps 5. Diverticulosis 6. Twisty colon 7. Grade 3 hemorrhoids Post-procedure Plan for aftercare: 1. Await histopathology. 2. Patient is encouraged to follow up with the blood work that was requested in clinic (specifically the celiac serology) 3. Surveillance colonoscopy will likely be suggested for 7 years time. Disposition: PACU
--- NOTE | 2022-06-29 14:45 | SUR.PHASEII ---
pt given discharge instructions. Pt states she understands dscharge instruction.s Pt discharged with friend.
== END 2022-06-29 14:42 | disposition home or self-care (01) ==
PROVIDERS: PCP Physician Assistant; Referring Provider Internal Medicine Gastroenterology; Visit Provider Internal Medicine Gastroenterology
PROC: 0DJD8ZZ Inspection of Lower Intestinal Tract, Via Natural or Artificial Opening Endoscopic (ICD-10-PCS; CPT 45378; principal; 2022-06-29 13:00)
PROC: 0DJ08ZZ Inspection of Upper Intestinal Tract, Via Natural or Artificial Opening Endoscopic (ICD-10-PCS; CPT 43235; 2022-06-29 13:00)
DX: R19.7 Diarrhea, unspecified (principal); Z86.010 Personal history of colon polyps; D50.9 Iron deficiency anemia, unspecified; K21.9 Gastro-esophageal reflux disease without esophagitis; K57.30 Diverticulosis of large intestine without perforation or abscess without bleeding; K64.2 Third degree hemorrhoids; K31.9 Disease of stomach and duodenum, unspecified; K44.9 Diaphragmatic hernia without obstruction or gangrene; K29.50 Unspecified chronic gastritis without bleeding; D12.2 Benign neoplasm of ascending colon; D12.5 Benign neoplasm of sigmoid colon
CPT/HCPCS: 45380; 43239; J2704; J3010

== ENCOUNTER → 2022-07-28 11:54 | Outpatient (CLI) | payer MEDICARE, SELFPAY ==
[2022-07-28 19:47] LABS: Add Manual Diff / Slide Review NO; Basophils Absolute Auto 0 /uL (0-100); Basophils Percent Auto 0.5 % (0-2); Eosinophils Absolute Auto 0 /uL (0-450); Eosinophils Percent Auto 0.8 % (2-4); Hematocrit 33.7 % (36-46); Hemoglobin 11.4 g/dL (12.0-16.0); Lymphocytes Absolute Auto 1500 /uL (1100-4500); Lymphocytes Percent Auto 25.7 % (25-40); Mean Corpuscular HGB Conc 33.7 % (30-36); Mean Corpuscular Hemoglobin 29.6 PG (26-34); Mean Corpuscular Volume 87.7 fL (80-100); Monocytes Absolute Auto 400 /uL (0-900); Monocytes Percent Auto 7.4 % (3-14); Neutrophils Absolute Auto 3800 /uL (1500-7000); Neutrophils Percent Auto 65.6 % (50-75); Platelet Count 226 X10^3/uL (150-400); Red Blood Cell Count 3.84 X10^6/uL (4.0-5.2); Red Cell Distribution Width 14.7 % (11.6-14.8); White Blood Cell Count 5.8 X10^3/uL (4.5-11.0)
[2022-07-28 20:41] LABS: HEMOLYSIS < 15 (0-50); Iron 48 ug/dL (37-170)
[2022-07-28 20:51] LABS: Percent Iron Saturation 16 % (15-50); Total Iron Binding Capacity 300 ug/dL (265-497); Transferrin 223 mg/dL (206-381)
[2022-07-31 22:04] LABS: Tissue Transglutaminase IgA <2 U/mL (0-3); Tissue Transglutaminase IgG <2 U/mL (0-5)
== END ==
PROVIDERS: Internal Medicine Gastroenterology; PCP Physician Assistant; Visit Provider Physician Assistant
DX: D64.9 Anemia, unspecified (principal); E61.1 Iron deficiency; K21.9 Gastro-esophageal reflux disease without esophagitis; R19.7 Diarrhea, unspecified; R60.0 Localized edema
CPT/HCPCS: 83516; 83540; 83550; 85025

== ENCOUNTER → 2022-11-26 08:50 | Outpatient (CLI) | payer MEDICARE, SELFPAY ==
[2022-11-26 10:08] LABS: Add Manual Diff / Slide Review NO; Basophils Absolute Auto 0 /uL (0-100); Basophils Percent Auto 0.3 % (0-2); Eosinophils Absolute Auto 100 /uL (0-450); Eosinophils Percent Auto 1.1 % (2-4); Hematocrit 34.4 % (36-46); Hemoglobin 11.3 g/dL (12.0-16.0); Lymphocytes Absolute Auto 1200 /uL (1100-4500); Lymphocytes Percent Auto 23.6 % (25-40); Mean Corpuscular HGB Conc 32.8 % (30-36); Mean Corpuscular Hemoglobin 28.8 PG (26-34); Mean Corpuscular Volume 87.9 fL (80-100); Monocytes Absolute Auto 300 /uL (0-900); Monocytes Percent Auto 6.9 % (3-14); Neutrophils Absolute Auto 3400 /uL (1500-7000); Neutrophils Percent Auto 68.1 % (50-75); Platelet Count 255 X10^3/uL (150-400); Red Blood Cell Count 3.92 X10^6/uL (4.0-5.2); Red Cell Distribution Width 14.8 % (11.6-14.8); White Blood Cell Count 4.9 X10^3/uL (4.5-11.0)
[2022-11-26 10:26] LABS: Hemoglobin A1C% w Est Avg Glu 6.1 % (4.0-6.0)
[2022-11-26 13:20] LABS: Alanine Aminotransferase 21 IU/L (<35); Albumin 3.8 g/dL (3.5-5.0); Albumin Globulin Ratio 1.3 (1.0-2.8); Alkaline Phosphatase 84 U/L (38-126); Aspartate Aminotransferase 21 IU/L (14-36); BUN Creatinine Ratio 18.5 (6-22); Bilirubin Total 0.4 mg/dL (0.2-1.3); Blood Urea Nitrogen 15 mg/dL (7-17); Calcium 8.8 mg/dL (8.4-10.2); Carbon Dioxide 26 mmol/L (22-32); Chloride 103 mmol/L (98-107); Estimated Glomerular Filt Rate > 60 mL/min (>60); Globulin 2.9 g/dL (1.7-4.1); Glucose 128 mg/dL (80-110); HEMOLYSIS < 15 (0-50); Potassium 3.4 mmol/L (3.4-5.1); Sodium 141 mmol/L (137-145); Total Protein 6.7 g/dL (6.3-8.2)
[2022-11-26 14:09] LABS: Vitamin B12 Reflex MMA if <400 695 pg/mL (239-931)
[2022-11-26 18:18] LABS: Hep C Virus Ab w/Reflex Quant NEGATIVE s/c (NEGATIVE)
== END ==
PROVIDERS: PCP Physician Assistant; Referring Provider Physician Assistant; Visit Provider Physician Assistant
DX: D64.9 Anemia, unspecified (principal); R73.03 Prediabetes; I10 Essential (primary) hypertension; K52.9 Noninfective gastroenteritis and colitis, unspecified
CPT/HCPCS: 36415; 80053; 82607; 83036; 85025; 86803

== ENCOUNTER → 2023-01-11 09:04 | Outpatient (CLI) | payer MEDICARE, SELFPAY ==
[2023-01-13 11:25] LABS: Fecal Immunochemical Test NEGATIVE
== END ==
PROVIDERS: PCP Physician Assistant; Visit Provider Physician Assistant
DX: D64.9 Anemia, unspecified (principal)
CPT/HCPCS: 82274

== ENCOUNTER → 2023-02-01 13:01 | Outpatient (CLI) | payer MEDICARE, SELFPAY ==
[2023-02-01 19:21] LABS: Add Manual Diff / Slide Review NO; Basophils Absolute Auto 0 /uL (0-100); Basophils Percent Auto 0.4 % (0-2); Eosinophils Absolute Auto 100 /uL (0-450); Eosinophils Percent Auto 1.1 % (2-4); Hemoglobin 11.8 g/dL (12.0-16.0); Lymphocytes Absolute Auto 1400 /uL (1100-4500); Lymphocytes Percent Auto 28.1 % (25-40); Mean Corpuscular HGB Conc 32.8 % (30-36); Mean Corpuscular Hemoglobin 29.3 PG (26-34); Mean Corpuscular Volume 89.4 fL (80-100); Monocytes Absolute Auto 400 /uL (0-900); Monocytes Percent Auto 8.9 % (3-14); Neutrophils Absolute Auto 3100 /uL (1500-7000); Neutrophils Percent Auto 61.5 % (50-75); Platelet Count 217 X10^3/uL (150-400); Red Blood Cell Count 4.03 X10^6/uL (4.0-5.2); Red Cell Distribution Width 15.5 % (11.6-14.8)
[2023-02-01 19:23] LABS: Alanine Aminotransferase 15 IU/L (<35); Albumin 3.7 g/dL (3.5-5.0); Albumin Globulin Ratio 1.3 (1.0-2.8); Alkaline Phosphatase 86 U/L (38-126); Aspartate Aminotransferase 19 IU/L (14-36); BUN Creatinine Ratio 16.5 (6-22); Bilirubin Total 0.4 mg/dL (0.2-1.3); Blood Urea Nitrogen 15 mg/dL (7-17); Calcium 8.7 mg/dL (8.4-10.2); Carbon Dioxide 33 mmol/L (22-32); Chloride 103 mmol/L (98-107); Estimated Glomerular Filt Rate > 60 mL/min (>60); Globulin 2.8 g/dL (1.7-4.1); Glucose 105 mg/dL (80-110); HEMOLYSIS < 15 (0-50); Potassium 3.6 mmol/L (3.4-5.1); Sodium 143 mmol/L (137-145); Total Protein 6.5 g/dL (6.3-8.2)
[2023-02-01 19:28] LABS: NT-proBNP (BNP-Adult 18+) 266 pg/mL (<125)
== END ==
PROVIDERS: PCP Physician Assistant; Visit Provider Physician Assistant
DX: I10 Essential (primary) hypertension (principal); I50.9 Heart failure, unspecified; J18.9 Pneumonia, unspecified organism
CPT/HCPCS: 80053; 83880; 85025

== ENCOUNTER → 2023-02-03 12:37 | Outpatient (CLI) | payer MEDICARE, SELFPAY ==
--- NOTE | 2023-02-03 12:38 | DI.CT.S_ITS ---
PROCEDURE: CT CHEST WO CON INDICATIONS: chronic cough, abnormal xrays/interstitial v infectious TECHNIQUE: Noncontrast 5 mm thick sections acquired from the pulmonary apices to the posterior costophrenic angles. 1 mm lung window, 5 mm thick coronal and sagittal and 7 mm axial MIP reformats were then acquired. For radiation dose reduction, the following was used: automated exposure control, adjustment of mA and/or kV according to patient size. COMPARISON: None. FINDINGS: Image quality: Excellent. Lungs and pleura: 3 mm solid nodule in the central left lower lobe (3/232). 5-6 mm solid nodularity with irregular margins in the lateral right upper lobe (3/115). No consolidation. Trace scarring in the superior left lower lobe. Mediastinum: Heart size is normal. No pericardial effusion. No mediastinal adenopathy by size criteria. Thoracic aorta and central pulmonary arteries are normal in size. Esophagus is normal in caliber. No hiatal hernia. Moderate to severe LAD calcifications. Bones and chest wall: No suspicious bony lesions. No vertebral body compression fractures. No axillary or supraclavicular adenopathy by size criteria. Thyroid gland is unremarkable . Abdomen: Fluid attenuating liver cysts. Fatty atrophy of the pancreas. IMPRESSION: 1. No acute findings to explain the patient's chronic cough. No CT evidence of bronchitis. 2. A 5-6 mm solid nodularity with irregular margins in the lateral right upper lobe. Given the irregular margins, six-month follow-up with low-dose chest CT is recommended to ensure stability. Dictated by: New Soto M.D. on 02/03/2023 at 13:24 Approved by: New Soto M.D. on 02/03/2023 at 13:28
== END ==
PROVIDERS: PCP Physician Assistant; Referring Provider Physician Assistant; Visit Provider Physician Assistant
DX: J18.9 Pneumonia, unspecified organism (principal); R05.3 Chronic cough; R91.8 Other nonspecific abnormal finding of lung field
CPT/HCPCS: 71250

== ENCOUNTER → 2023-02-10 13:30 | Outpatient (CLI) | payer MEDICARE, SELFPAY | PROVIDERS: PCP Physician Assistant; Visit Provider Physician Assistant | DX: J18.9 Pneumonia, unspecified organism (principal); R05.9 Cough, unspecified; Z78.0 Asymptomatic menopausal state | CPT/HCPCS: 87205 ==

== ENCOUNTER → 2023-02-12 14:49 | Outpatient (CLI) | payer MEDICARE, SELFPAY | PROVIDERS: PCP Physician Assistant; Visit Provider Physician Assistant | DX: J18.9 Pneumonia, unspecified organism (principal); R05.3 Chronic cough | CPT/HCPCS: 87070; 87205 ==

== ENCOUNTER → 2023-02-17 12:06 | Outpatient (CLI) | payer MEDICARE, SELFPAY ==
--- NOTE | 2023-02-17 12:27 | DI.DEXA.S_ITS ---
Indication: postmenopausal; screening for osteoporosis; Referring Provider: NAKIA GIRARD Study: Bone densitometry was performed. Exam Date: February 17, 2023 Accession number: [id number] Bone Density: Region BMD T-score Z-score Classification AP Spine(L1-L4) 1.097 0.5 2.5 Normal Femoral Neck (Left) 0.735 -1.0 0.7 Normal Total Hip (Left) 0.917 -0.2 1.3 Normal Femoral Neck (Right) 0.728 -1.1 0.7 Osteopenia Total Hip (Right) 0.911 -0.3 1.2 Normal Total Hip Mean 0.914 -0.3 1.3 Normal World Health Organization criteria for BMD impression classify patients as: Normal (T-score at or above -1.0), Osteopenia (T-score between -1.0 and -2.5), or Osteoporosis (T-score at or below -2.5). 10-year Fracture Risk(1): Major Osteoporotic Fracture 8.1% Hip Fracture 0.8% Reported Risk Factors: [place] (), Neck BMD=0.728, BMI=38.1 (1) FRAX(R) Version 3.08. Fracture probability calculated for an untreated patient. Fracture probability may be lower if the patient has received treatment. Impression: The patient has low bone mass, based on the Right Femoral Neck T-score. The patient has an estimated ten-year risk of hip fracture of 0.8% and an estimated ten-year risk of major fracture of 8.1%, based on the WHO FRAX algorithm. Discussion: BONE DENSITY IS LOW AT ONE OR MORE SKELETAL SITES. This patient's lowest T-score is low at one or more skeletal sites. It meets the World Health Organization's (WHO) criteria for ?low bone mass? (T-score between -1.0 and -2.5). The patient's 10-year risk of fracture as calculated by FRAX is less than the threshold where pharmacological therapy is recommended by the National Osteoporosis Foundation (NOF). However, all treatment decisions require clinical judgment and consideration of individual patient factors, including patient preferences, comorbidities, previous drug use, risk factors not captured in the FRAX model (e.g., frailty, falls, vitamin D deficiency, increased bone turnover, interval significant decline in bone density) and possible under or overestimation of fracture risk by FRAX. The patient should follow a healthful lifestyle (good nutrition with adequate calcium and vitamin D, and appropriate weight-bearing exercise). Follow-Up: Consider repeating this study in 2 to 3 years to reassess this patient's status, or sooner if there is some new clinical indication. Reported by: SHAUN DAUGHERTY M.D. on 02/17/2023 12:39:00 PM.
== END ==
PROVIDERS: PCP Physician Assistant; Referring Provider Physician Assistant; Visit Provider Physician Assistant
DX: M85.851 Other specified disorders of bone density and structure, right thigh (principal); Z13.820 Encounter for screening for osteoporosis; Z78.0 Asymptomatic menopausal state; I50.9 Heart failure, unspecified
CPT/HCPCS: 77080

== ENCOUNTER → 2023-02-18 09:32 | Outpatient (CLI) | payer MEDICARE, SELFPAY ==
[2023-02-18 19:57] LABS: BUN Creatinine Ratio 27.3 (6-22); Blood Urea Nitrogen 27 mg/dL (7-17); Calcium 8.8 mg/dL (8.4-10.2); Carbon Dioxide 32 mmol/L (22-32); Chloride 98 mmol/L (98-107); Estimated Glomerular Filt Rate > 60 mL/min (>60); Glucose 150 mg/dL (80-110); HEMOLYSIS < 15 (0-50); Potassium 3.1 mmol/L (3.4-5.1); Sodium 140 mmol/L (137-145)
[2023-02-18 21:02] LABS: Folate > 20.0 ng/mL (2.76-20.0); Vitamin B12 509 pg/mL (239-931)
[2023-02-21 12:38] LABS: Homocysteine 14.9 umol/L (0.0-17.2)
[2023-02-23 05:16] LABS: Methylmalonic Acid,Serum 238 nmol/L (0-378)
== END ==
PROVIDERS: PCP Physician Assistant; Visit Provider Physician Assistant
DX: D64.9 Anemia, unspecified (principal); I50.9 Heart failure, unspecified
CPT/HCPCS: 80048; 82607; 82746; 83090; 83921

== ENCOUNTER → 2023-03-02 08:50 | Outpatient (CLI) | payer MEDICARE, SELFPAY ==
[2023-03-02 20:12] LABS: BUN Creatinine Ratio 18.1 (6-22); Blood Urea Nitrogen 17 mg/dL (7-17); Calcium 8.6 mg/dL (8.4-10.2); Carbon Dioxide 31 mmol/L (22-32); Chloride 105 mmol/L (98-107); Estimated Glomerular Filt Rate > 60 mL/min (>60); Glucose 180 mg/dL (80-110); HEMOLYSIS < 15 (0-50); Sodium 142 mmol/L (137-145)
== END ==
PROVIDERS: PCP Physician Assistant; Visit Provider Physician Assistant
DX: I50.9 Heart failure, unspecified (principal)
CPT/HCPCS: 80048

== ENCOUNTER → 2023-03-24 13:05 | Outpatient (CLI) | payer MEDICARE, SELFPAY ==
[2023-03-26 16:57] LABS: Candida species Negative (Negative); Gardnerella vaginalis Negative (Negative); Trichomoas vaginalis Negative (Negative)
== END ==
PROVIDERS: PCP Physician Assistant; Visit Provider Physician Assistant
DX: N89.8 Other specified noninflammatory disorders of vagina (principal); R31.9 Hematuria, unspecified
CPT/HCPCS: 87086; 87480; 87510; 87660

== ENCOUNTER → 2023-03-25 11:22 | Outpatient (CLI) | payer MEDICARE, SELFPAY ==
[2023-03-25 12:50] LABS: BUN Creatinine Ratio 21.8 (6-22); Blood Urea Nitrogen 24 mg/dL (7-17); Calcium 8.6 mg/dL (8.4-10.2); Carbon Dioxide 35 mmol/L (22-32); Chloride 99 mmol/L (98-107); Cholesterol 176 mg/dL (140-199); Estimated Glomerular Filt Rate 54 mL/min (>60); Glucose 124 mg/dL (80-110); HDL Cholesterol 51 mg/dL (40-60); HEMOLYSIS < 15 (0-50); LDL Cholesterol Calculated 105 mg/dL (<100); Sodium 142 mmol/L (137-145); Triglycerides 100 mg/dL (35-150)
== END ==
PROVIDERS: PCP Physician Assistant; Referring Provider Nurse Practitioner Acute Care; Visit Provider Nurse Practitioner Acute Care
DX: I10 Essential (primary) hypertension (principal); R93.1 Abnormal findings on diagnostic imaging of heart and coronary circulation; M79.89 Other specified soft tissue disorders
CPT/HCPCS: 36415; 80048; 80061

== ENCOUNTER → 2023-04-15 09:08 | Outpatient (CLI) | payer MEDICARE, SELFPAY | PROVIDERS: PCP Physician Assistant; Visit Provider Physician Assistant Medical | DX: N39.0 Urinary tract infection, site not specified (principal) | CPT/HCPCS: 87077; 87086; 87186 ==

== ENCOUNTER → 2023-05-24 09:36 | Outpatient (CLI) | payer MEDICARE, SELFPAY ==
[2023-05-24 20:14] LABS: BUN Creatinine Ratio 18.5 (6-22); Blood Urea Nitrogen 17 mg/dL (7-17); Calcium 8.6 mg/dL (8.4-10.2); Carbon Dioxide 31 mmol/L (22-32); Chloride 103 mmol/L (98-107); Estimated Glomerular Filt Rate > 60 mL/min (>60); Glucose 124 mg/dL (80-110); HEMOLYSIS < 15 (0-50); Potassium 3.7 mmol/L (3.4-5.1); Sodium 139 mmol/L (137-145)
== END ==
PROVIDERS: PCP Physician Assistant; Visit Provider Physician Assistant
DX: I10 Essential (primary) hypertension (principal)
CPT/HCPCS: 80048

== ENCOUNTER → 2023-05-28 10:23 | Outpatient (CLI) | payer MEDICARE, SELFPAY ==
--- NOTE | 2023-05-28 | DI.ECHO.S_ITS ---
[facility] +---------+ [facility] +---------+ : : [address] : : : : [id number] : : : : Phone: [phone]+ Echocardiogram Report + + :Name: CAYDEN DELANEY Study Date: 05/28/2023 Height: 71 in : :[facility] ReadingLocation: Weight: 285 lb : : Gender: Female BSA: 2.5 m2 : :: 1955 Age: 67 yrs BP: 167/80 mmHg: :Reason For Study: Abnormal Echocardiogram : :Ordering Physician: MATTEO, : :CALIXTO Performed By: Silvia Powers : :Referring: CALIXTO FELIPE : + + Interpretation Summary The ejection fraction is estimated to be 55-60%. Diastolic parameters suggest probable normal left ventricular diastolic function and normal filling pressures. The right ventricle is normal in size and function. The left atrium is mildly dilated. There is mild tricuspid regurgitation. The right ventricular systolic pressure is estimated to be at least 29 mmHg based on an estimated right atrial pressure of 3 mm Hg. Procedure: A two-dimensional transthoracic echocardiogram with color flow and Doppler was performed. The study quality was technically difficult. There is no prior echocardiogram noted for this patient. The patient was in normal sinus rhythm during the exam. Left Ventricle: The left ventricle is normal in size. The ejection fraction is estimated to be 55-60%. Diastolic parameters suggest probable normal left ventricular diastolic function and normal filling pressures. Right Ventricle: The right ventricle is normal in size and function. Atria: The left atrium is mildly dilated. Right atrial size is normal. There is no Doppler evidence for an interatrial shunt. Mitral Valve: The mitral valve leaflets appear mildly thickened, but open well. There is no mitral valve stenosis. There is trace mitral regurgitation. Aortic Valve: The aortic valve is not well visualized but is presumably normal. There is no aortic valve stenosis. No aortic regurgitation is present. Tricuspid Valve: The tricuspid valve is normal. There is no tricuspid stenosis. There is mild tricuspid regurgitation. The right ventricular systolic pressure is estimated to be at least 29 mmHg based on an estimated right atrial pressure of 3 mm Hg. Pulmonic Valve: The pulmonic valve leaflets are thin and pliable; valve motion is normal. There is no pulmonic valvular stenosis. There is no pulmonic valvular regurgitation. Great Vessels: The aortic root is normal size. The ascending aorta is normal in size. The pulmonary artery is normal size. The IVC is of normal diameter and collapses greater than 50% with a sniff. This suggests a low right atrial pressure of 3 mm Hg. Pericardium/ Pleura There is no pericardial effusion. There is no pleural effusion. MMode/2D Measurements & Calculations LVIDd: 4.6 cm LVOT diam: 2.1 cm LVIDs: 3.6 cm Ao root diam: 3.1 cm FS: 21.7 % asc Aorta Diam: 3.5 cm EPSS: 0.70 cm IVSd: 1.4 cm LVPWd: 1.6 cm LV perrin. diameter/BSA (cm/m^2): 1.9 LV sys. diameter/BSA (cm/m^2): 1.5 LA A2 area: 21.3 cm2 RA long axis: 5.4 cm LA A4 area: 21.3 cm2 RA area: 16.5 cm2 LA length (vol): 5.4 cm RA vol: 42.8 ml LA vol: 71.2 ml RA : 17.4 ml/m2 LA vol index: 29.0 ml/m2 RVD1 (basal): 3.6 cm LVLs ap4: 6.7 cm LVLd ap2: 7.0 cm TAPSE_phl: 2.5 cm LVLs ap2: 6.7 cm Doppler Measurements & Calculations Ao V2 max: 165.0 cm/sec LVOT Max Fady: 110.0 cm/sec Ao V2 mean: 117.0 cm/sec LV V1 max P.8 mmHg Ao max P.0 mmHg LV V1 VTI: 25.5 cm Ao mean P.0 mmHg CATY(I,D): 2.5 cm2 Ao V2 VTI: 35.9 cm CATY(V,D): 2.3 cm2 sev ratio: 0.71 CATY indexed to BSA (cm^2/m^2): 1.0 MV E max fady: 77.5 cm/sec TR max fady: 255.0 cm/sec MV A max fady: 97.1 cm/sec TR max P.0 mmHg MV E/A: 0.80 PA V2 max: 96.7 cm/sec Med Peak E' Fady: 6.4 cm/sec PA V2 mean: 71.6 cm/sec E/E' med: 12.1 PA mean P.0 mmHg Lat Peak E' Fady: 7.9 cm/sec PA pr(Accel): 21.9 mmHg E/E' lat: 9.8 E/e' average: 11.0 MV dec time: 0.31 sec SV(LVOT): 88.3 ml AV VR_phl: 0.67 CATY(VTI)/BSA_phl: 1.0 MV P1/2t-pr_phl: 91.0 msec Reading Physician:02:45 PM
== END ==
PROVIDERS: PCP Physician Assistant; Referring Provider Nurse Practitioner Acute Care; Visit Provider Nurse Practitioner Acute Care
DX: R93.1 Abnormal findings on diagnostic imaging of heart and coronary circulation (principal); M79.89 Other specified soft tissue disorders; I07.1 Rheumatic tricuspid insufficiency
CPT/HCPCS: 93306

== ENCOUNTER → 2023-06-29 13:17 | Outpatient (CLI) | payer MEDICARE, SELFPAY | PROVIDERS: PCP Physician Assistant; Visit Provider Physician Assistant | DX: N39.0 Urinary tract infection, site not specified (principal) | CPT/HCPCS: 87086 ==

== ENCOUNTER → 2023-07-19 11:32 | Outpatient (CLI) | payer MEDICARE, SELFPAY ==
[2023-07-19 20:06] LABS: Add Manual Diff / Slide Review NO; Basophils Absolute Auto 0 /uL (0-100); Basophils Percent Auto 0.5 % (0-2); Eosinophils Absolute Auto 0 /uL (0-450); Hematocrit 35.8 % (36-46); Hemoglobin 11.9 g/dL (12.0-16.0); Lymphocytes Absolute Auto 1400 /uL (1100-4500); Lymphocytes Percent Auto 30.8 % (25-40); Mean Corpuscular HGB Conc 33.3 % (30-36); Mean Corpuscular Hemoglobin 30.5 PG (26-34); Mean Corpuscular Volume 91.6 fL (80-100); Monocytes Absolute Auto 200 /uL (0-900); Monocytes Percent Auto 4.8 % (3-14); Neutrophils Absolute Auto 2800 /uL (1500-7000); Neutrophils Percent Auto 62.9 % (50-75); Platelet Count 228 X10^3/uL (150-400); Red Blood Cell Count 3.91 X10^6/uL (4.0-5.2); Red Cell Distribution Width 14.9 % (11.6-14.8); White Blood Cell Count 4.4 X10^3/uL (4.5-11.0)
[2023-07-19 23:07] LABS: HEMOLYSIS < 15 (0-50); Iron 79 ug/dL (37-170)
[2023-07-19 23:20] LABS: Percent Iron Saturation 25 % (15-50); Total Iron Binding Capacity 310 ug/dL (265-497); Transferrin 220 mg/dL (206-381)
[2023-07-19 23:33] LABS: Hemoglobin A1C% w Est Avg Glu 5.7 % (4.0-6.0)
[2023-07-19 23:51] LABS: Ferritin 92 ng/mL (11-264)
[2023-07-21 14:09] LABS: QuantiFERON Mitogen Value >10.00 IU/mL (.); QuantiFERON Nil Value 0.03 IU/mL (.); QuantiFERON TB Gold Plus Negative (Negative); QuantiFERON TB1 Ag Value 0.03 IU/mL (.); QuantiFERON TB2 Ag Value 0.03 IU/mL (.)
== END ==
PROVIDERS: PCP Physician Assistant; Visit Provider Physician Assistant
DX: D64.9 Anemia, unspecified (principal); R05.9 Cough, unspecified
CPT/HCPCS: 82728; 83036; 83540; 83550; 85025; 86480

== ENCOUNTER → 2023-07-29 11:49 | Outpatient (CLI) | payer MEDICARE, SELFPAY ==
--- NOTE | 2023-07-29 11:50 | DI.CT.S_ITS ---
PROCEDURE: CT CHEST WO CON INDICATIONS: f/u on previous CT, nodule monitoring TECHNIQUE: Noncontrast 2.0-2.5 mm thick sections acquired from the pulmonary apices to the posterior costophrenic angles. 7 mm thick axial MIP and 5 mm coronal and sagittal reformats were then acquired. A low radiation dose technique was utilized. COMPARISON: [facility], CT, CT CHEST WO CON, 02/03/2023, 12:42. FINDINGS: Image quality: Diagnostic, given the low radiation dose technique. Lungs and pleura: 6 mm pulmonary nodule within the right upper lobe is unchanged from the study dated February 03, 2023 (series 3/image 105). No new pulmonary nodules. No acute airspace opacities. No pleural effusion or pneumothorax. Mediastinum: Heart size is normal. No pericardial effusion. No mediastinal adenopathy by size criteria. Thoracic aorta and central pulmonary arteries are normal in size. Esophagus is normal in caliber. No hiatal hernia. Bones and chest wall: No suspicious bony lesions. No vertebral body compression fractures. No axillary or supraclavicular adenopathy by size criteria. Thyroid gland is unremarkable . Abdomen: Probable cysts are visualized within the dome of the liver, unchanged from the prior study. Visualized upper abdomen solid organs and bowel loops appear normal in the absence of contrast. IMPRESSION: 1. Stable right upper lobe 6 mm pulmonary nodule. Please see follow-up guidelines below. In a high-risk patient, [address] follow-up recommended. In a low risk patient, follow-up is optional. Fleischner Society criteria for SOLID lung nodule followup. Nodule size (mm)Low-risk patientHigh-risk patient<6 (single or multiple)No routine followup.Optional CT at 12 months. 6-8 (single or multiple)CT at 6-12 months, then optional CT at 18-24 mo.CT at 6-12 months, then CT at 18-24 months. >8 (single)CT at 3 months, PET-CT, or biopsy. Same as for low-risk pts. >8 (multiple)CT at 3-6 months, then optional CT at 18-24 mo.CT at 3-6 months, then CT at 18-24 months. Fleischner Society criteria for SUB-SOLID lung nodule followup. Solitary pure ground-glass nodules<6 mm (ground glass or part solid)No followup needed. 6 mm or larger (ground glass)CT at 6-12 months to confirm persistence, then CT every 2 years until 5 years.6 mm or larger (part solid)CT at 3-6 months to confirm persistence, then annual CT until 5 years if unchanged and solid component remains <6 mm. Multiple sub-solid nodules<6 mmCT at 3-6 months, then CT consider at 2 & 4 years for high risk patients. [address] at 3-6 months. Subsequent management based on most suspicious lesions. Recommendations do not apply to lung cancer screening, patients with immunosuppression, or patients with known primary cancer. Dictated by: Kasia Roth M.D. on 07/29/2023 at 12:45 Approved by: Kasia Roth M.D. on 07/29/2023 at 12:52
== END ==
PROVIDERS: PCP Physician Assistant; Referring Provider Physician Assistant; Visit Provider Physician Assistant
DX: R91.1 Solitary pulmonary nodule (principal)
CPT/HCPCS: 71250

== ENCOUNTER → 2024-02-14 13:23 | Outpatient (CLI) | payer MEDICARE, SELFPAY ==
[2024-02-14 19:51] LABS: BUN Creatinine Ratio 19.2 (6-22); Blood Urea Nitrogen 20 mg/dL (7-17); Calcium 9.3 mg/dL (8.4-10.2); Carbon Dioxide 30 mmol/L (22-32); Chloride 108 mmol/L (98-107); Estimated Glomerular Filt Rate 58 mL/min (>60); Glucose 115 mg/dL (80-110); HEMOLYSIS < 15 (0-50); Potassium 4.1 mmol/L (3.4-5.1); Sodium 142 mmol/L (137-145)
== END ==
PROVIDERS: PCP Family Medicine; Visit Provider Internal Medicine Cardiovascular Disease
DX: I10 Essential (primary) hypertension (principal)
CPT/HCPCS: 80048

== ENCOUNTER → 2024-03-29 14:09 | Outpatient (CLI) | payer MEDICARE, SELFPAY ==
[2024-03-29 21:09] LABS: Add Manual Diff / Slide Review NO; Basophils Absolute Auto 0 /uL (0-100); Basophils Percent Auto 0.4 % (0-2); Eosinophils Absolute Auto 0 /uL (0-450); Hematocrit 32.2 % (36-46); Hemoglobin 10.7 g/dL (12.0-16.0); Lymphocytes Absolute Auto 1700 /uL (1100-4500); Lymphocytes Percent Auto 33.3 % (25-40); Mean Corpuscular HGB Conc 33.3 % (30-36); Mean Corpuscular Hemoglobin 30.6 PG (26-34); Mean Corpuscular Volume 91.9 fL (80-100); Monocytes Absolute Auto 600 /uL (0-900); Monocytes Percent Auto 11.6 % (3-14); Neutrophils Absolute Auto 2800 /uL (1500-7000); Neutrophils Percent Auto 53.7 % (50-75); Platelet Count 275 X10^3/uL (150-400); White Blood Cell Count 5.1 X10^3/uL (4.5-11.0)
[2024-03-29 21:11] LABS: Alanine Aminotransferase 23 IU/L (<35); Albumin 3.7 g/dL (3.5-5.0); Albumin Globulin Ratio 1.3 (1.0-2.8); Alkaline Phosphatase 76 U/L (38-126); Aspartate Aminotransferase 26 IU/L (14-36); BUN Creatinine Ratio 15.3 (6-22); Bilirubin Total 0.3 mg/dL (0.2-1.3); Blood Urea Nitrogen 15 mg/dL (7-17); C-Reactive Protein Quant 0.5 mg/dL (<1.0); Calcium 8.6 mg/dL (8.4-10.2); Carbon Dioxide 29 mmol/L (22-32); Chloride 106 mmol/L (98-107); Estimated Glomerular Filt Rate > 60 mL/min (>60); Globulin 2.8 g/dL (1.7-4.1); Glucose 104 mg/dL (80-110); HEMOLYSIS < 15 (0-50); Potassium 3.4 mmol/L (3.4-5.1); Sodium 141 mmol/L (137-145); Total Protein 6.5 g/dL (6.3-8.2)
[2024-03-29 21:45] LABS: Ferritin 228 ng/mL (11-264)
== END ==
PROVIDERS: PCP Family Medicine; Visit Provider Family Medicine
DX: N17.9 Acute kidney failure, unspecified (principal); D64.9 Anemia, unspecified; I10 Essential (primary) hypertension; R19.7 Diarrhea, unspecified
CPT/HCPCS: 80053; 82728; 85025; 86140

== ENCOUNTER → 2024-08-03 10:27 | Outpatient (CLI) | payer MEDICARE, SELFPAY ==
[2024-08-03 20:13] LABS: Add Manual Diff / Slide Review NO; Basophils Absolute Auto 0 /uL (0-100); Basophils Percent Auto 0.6 % (0-2); Eosinophils Absolute Auto 0 /uL (0-450); Hematocrit 35.4 % (36-46); Hemoglobin 11.6 g/dL (12.0-16.0); Lymphocytes Absolute Auto 2000 /uL (1100-4500); Mean Corpuscular HGB Conc 32.9 % (30-36); Mean Corpuscular Hemoglobin 29.7 PG (26-34); Mean Corpuscular Volume 90.2 fL (80-100); Monocytes Absolute Auto 300 /uL (0-900); Monocytes Percent Auto 6.7 % (3-14); Neutrophils Absolute Auto 2700 /uL (1500-7000); Neutrophils Percent Auto 52.7 % (50-75); Platelet Count 232 X10^3/uL (150-400); Red Blood Cell Count 3.92 X10^6/uL (4.0-5.2); Red Cell Distribution Width 14.5 % (11.6-14.8); White Blood Cell Count 5.2 X10^3/uL (4.5-11.0)
[2024-08-03 20:21] LABS: Reticulocyte Count, Percent 0.7 % (1.1-2.6)
[2024-08-03 20:41] LABS: HEMOLYSIS 16 (0-50); Iron 59 ug/dL (37-170)
[2024-08-03 20:43] LABS: Alanine Aminotransferase 20 IU/L (<35); Albumin 3.8 g/dL (3.5-5.0); Albumin Globulin Ratio 1.3 (1.0-2.8); Alkaline Phosphatase 98 U/L (38-126); Aspartate Aminotransferase 25 IU/L (14-36); BUN Creatinine Ratio 17.9 (6-22); Bilirubin Total 0.5 mg/dL (0.2-1.3); Blood Urea Nitrogen 22 mg/dL (7-17); Calcium 9.2 mg/dL (8.4-10.2); Carbon Dioxide 27 mmol/L (22-32); Chloride 103 mmol/L (98-107); Cholesterol 158 mg/dL (140-199); Estimated Glomerular Filt Rate 47 mL/min (>60); Globulin 2.9 g/dL (1.7-4.1); Glucose 119 mg/dL (80-110); HDL Cholesterol 40 mg/dL (40-60); HEMOLYSIS < 15 (0-50); LDL Cholesterol Calculated 93 mg/dL (<100); Potassium 4.1 mmol/L (3.4-5.1); Sodium 138 mmol/L (137-145); Total Protein 6.7 g/dL (6.3-8.2); Triglycerides 124 mg/dL (35-150)
[2024-08-03 20:53] LABS: Percent Iron Saturation 22 % (15-50); Total Iron Binding Capacity 265 ug/dL (265-497); Transferrin 205 mg/dL (206-381)
[2024-08-03 21:19] LABS: Ferritin 162 ng/mL (11-264)
== END ==
PROVIDERS: PCP Family Medicine; Visit Provider Family Medicine
DX: D64.9 Anemia, unspecified (principal); R94.4 Abnormal results of kidney function studies; I10 Essential (primary) hypertension; Z13.6 Encounter for screening for cardiovascular disorders
CPT/HCPCS: 80053; 80061; 82728; 83540; 83550; 85025; 85045

== ENCOUNTER → 2024-08-10 11:15 | Outpatient (CLI) | payer MEDICARE, SELFPAY ==
--- NOTE | 2024-08-10 11:16 | DI.CT.S_ITS ---
PROCEDURE: CT CHEST WO CON INDICATIONS: pulm nodules TECHNIQUE: Noncontrast 5 mm thick sections acquired from the pulmonary apices to the posterior costophrenic angles. 1 mm lung window, 5 mm thick coronal and sagittal and 7 mm axial MIP reformats were then acquired. For radiation dose reduction, the following was used: automated exposure control, adjustment of mA and/or kV according to patient size. COMPARISON: [facility], CT, CT CHEST WO CON, 07/29/2023, 11:51. [facility], CT, CT CHEST WO CON, 02/03/2023, 12:42. FINDINGS: Image quality: Diagnostic. Lower Neck: No enlarged lymph nodes. Thyroid: No thyroid nodules which require sonographic follow up, per consensus guidelines. Axillae: No enlarged lymph nodes. Chest Wall: Unremarkable. Bones: Unremarkable. Lungs and Pleura: No pneumothorax or pleural effusions. No acute consolidation. Stable 6 mm nodule at the lateral right upper lobe (103/3). No suspicious new or enlarging pulmonary nodule. Heart: Heart size is normal. No pericardial effusion. Mild coronary artery calcifications. Thoracic Vessels: The aorta and pulmonary arteries demonstrate normal size. Mediastinum and Maral: No enlarged lymph nodes. Esophagus: No wall thickening. No hiatal hernia. Upper Abdomen: Hepatic cysts are partially visualized and do not appear significantly changed. Status post cholecystectomy. IMPRESSION: Stable 6 mm right upper lobe pulmonary nodule dating back to at least 02/03/2023. Given stability, no additional dedicated follow-up imaging is required. Approved by: Avi Fleming M.D. on 08/10/2024 at 16:03
--- NOTE | 2024-08-10 11:16 | DI.MG.S_ITS ---
BILATERAL DIGITAL SCREENING MAMMOGRAM 3D/2D WITH CAD: 08/10/2024 CLINICAL: Routine screening. Comparison is made to exams dated: 06/07/2023 mammogram, 07/10/2021 mammogram, and 06/17/2020 mammogram - [facility]. There are scattered areas of fibroglandular density (category b / 25%-50% glandular tissue). Current study was also evaluated with a Computer Aided Detection (CAD) system. There are benign vascular calcifications in the right breast. No significant masses, calcifications, or other findings are seen in either breast. There has been no significant interval change. IMPRESSION: BENIGN There is no mammographic evidence of malignancy. A 1 year screening mammogram is recommended. Based on the Tyrer Cuzick model (a risk assessment model) the patient's lifetime risk is 4.1% and her 10 year risk is 2.6%. According to the ACR, ACS, and NCCN guidelines, an annual breast MRI exam along with mammogram is recommended if the patient's lifetime risk is 20% or greater. This exam was interpreted at Station ID: [id number]. NOTE: For mammograms, a report in lay terms will be sent to the patient. Approximately 15% of breast malignancies will not be visualized mammographically. In the management of a palpable breast mass, a negative mammogram must not discourage biopsy of a clinically suspicious lesion. Electronically Signed By: Hanh jean/tadeo:08/10/2024 17:02:50 letter sent: Normal Exam ACR BI-RADS Category 2: Benign
== END ==
LOC: MAMMO 11:16
PROVIDERS: PCP Family Medicine; Referring Provider Family Medicine; Visit Provider Family Medicine
DX: Z12.31 Encounter for screening mammogram for malignant neoplasm of breast (principal); R91.1 Solitary pulmonary nodule; K76.89 Other specified diseases of liver; I25.10 Atherosclerotic heart disease of native coronary artery without angina pectoris; Z80.49 Family history of malignant neoplasm of other genital organs
CPT/HCPCS: 71250; 77063; 77067

== ENCOUNTER → 2024-10-17 13:24 | Outpatient (CLI) | payer MEDICARE, SELFPAY ==
[2024-10-17 19:24] LABS: BUN Creatinine Ratio 21.2 (6-22); Blood Urea Nitrogen 28 mg/dL (7-17); Calcium 8.9 mg/dL (8.4-10.2); Carbon Dioxide 31 mmol/L (22-32); Chloride 102 mmol/L (98-107); Estimated Glomerular Filt Rate 43 mL/min (>60); Glucose 112 mg/dL (80-110); HEMOLYSIS < 15 (0-50); Potassium 4.3 mmol/L (3.4-5.1); Sodium 138 mmol/L (137-145)
[2024-10-17 20:00] LABS: Thyroid Stimulating Hormone 2.27 uIU/mL (0.47-4.68)
[2024-10-17 20:18] LABS: Vitamin B12 > 1000 pg/mL (239-931)
== END ==
PROVIDERS: PCP Family Medicine; Referring Provider Family Medicine; Visit Provider Family Medicine
DX: I10 Essential (primary) hypertension (principal); R94.4 Abnormal results of kidney function studies; D64.9 Anemia, unspecified; E53.8 Deficiency of other specified B group vitamins
CPT/HCPCS: 80048; 82607; 84443

== ENCOUNTER → 2024-11-28 12:00 | Outpatient (CLI) | payer MEDICARE, SELFPAY ==
[2024-11-28 13:40] LABS: BUN Creatinine Ratio 18.5 (6-22); Blood Urea Nitrogen 29 mg/dL (7-17); Calcium 8.9 mg/dL (8.4-10.2); Carbon Dioxide 23 mmol/L (22-32); Chloride 108 mmol/L (98-107); Estimated Glomerular Filt Rate 35 mL/min (>60); Glucose 97 mg/dL (80-110); HEMOLYSIS < 15 (0-50); Potassium 4.1 mmol/L (3.4-5.1); Sodium 141 mmol/L (137-145)
== END ==
PROVIDERS: PCP Family Medicine; Referring Provider Family Medicine; Visit Provider Family Medicine
DX: I50.9 Heart failure, unspecified (principal); R94.4 Abnormal results of kidney function studies
CPT/HCPCS: 80048

== ENCOUNTER → 2024-12-20 12:34 | Outpatient (CLI) | payer MEDICARE, SELFPAY ==
[2024-12-20 13:31] LABS: BUN Creatinine Ratio 17.7 (6-22); Blood Urea Nitrogen 22 mg/dL (7-17); Calcium 8.8 mg/dL (8.4-10.2); Carbon Dioxide 24 mmol/L (22-32); Chloride 111 mmol/L (98-107); Estimated Glomerular Filt Rate 47 mL/min (>60); Glucose 95 mg/dL (80-110); HEMOLYSIS < 15 (0-50); Sodium 143 mmol/L (137-145)
== END ==
PROVIDERS: PCP Family Medicine; Referring Provider Family Medicine; Visit Provider Family Medicine
DX: R94.4 Abnormal results of kidney function studies (principal)
CPT/HCPCS: 36415; 80048

== ENCOUNTER → 2025-01-26 14:25 | Outpatient (CLI) | payer MEDICARE, SELFPAY | PROVIDERS: PCP Family Medicine; Visit Provider Physician Assistant Medical | DX: R35.0 Frequency of micturition (principal) | CPT/HCPCS: 87086 ==

== ENCOUNTER → 2025-01-31 14:12 | Outpatient (CLI) | payer MEDICARE, SELFPAY ==
--- NOTE | 2025-01-31 14:15 | DI.RAD.S_ITS ---
PROCEDURE: XR WRIST RT MIN 3V INDICATIONS: swelling at dorsal aspect of hand/no trauma TECHNIQUE: 4 views of the wrist were acquired. COMPARISON: None. FINDINGS: Bones: No fractures or dislocations. No suspicious bony lesions. Soft tissues: No suspicious soft tissue calcifications. IMPRESSION: No acute bony abnormality. Dictated by: Horacio Fleming M.D. on 01/31/2025 at 18:29 Approved by: Horacio Fleming M.D. on 01/31/2025 at 18:30
--- NOTE | 2025-01-31 14:15 | DI.RAD.S_ITS ---
PROCEDURE: XR HAND RT MIN 3V INDICATIONS: swelling at dorsal aspect of hand/no trauma TECHNIQUE: 3 views of the hand(s) acquired. COMPARISON: [facility] ([place]), CR, XR HAND RT MIN 3V, 05/22/2021, 10:46. FINDINGS: Bones: No fractures or dislocations. Carpal bones are normally aligned. No suspicious bony lesions. Soft tissues: No suspicious soft tissue calcifications. IMPRESSION: No acute bony abnormality. Dictated by: Horacio Fleming M.D. on 01/31/2025 at 18:28 Approved by: Horacio Fleming M.D. on 01/31/2025 at 18:29
== END ==
PROVIDERS: PCP Family Medicine; Referring Provider Physician Assistant Medical; Visit Provider Physician Assistant Medical
DX: M79.89 Other specified soft tissue disorders (principal)
CPT/HCPCS: 73110; 73130

== ENCOUNTER → 2025-02-05 13:36 | Outpatient (CLI) | payer MEDICARE, SELFPAY ==
[2025-02-05 14:30] LABS: Hemoglobin A1C% w Est Avg Glu 5.1 % (4.0-6.0)
[2025-02-05 14:37] LABS: Add Manual Diff / Slide Review NO; Basophils Absolute Auto 0 /uL (0-100); Basophils Percent Auto 0.3 % (0-2); Eosinophils Absolute Auto 0 /uL (0-450); Eosinophils Percent Auto 0.3 % (2-4); Hematocrit 33.9 % (36-46); Hemoglobin 11.2 g/dL (12.0-16.0); Lymphocytes Absolute Auto 1800 /uL (1100-4500); Lymphocytes Percent Auto 22.4 % (25-40); Mean Corpuscular HGB Conc 33.1 % (30-36); Mean Corpuscular Hemoglobin 29.6 PG (26-34); Mean Corpuscular Volume 89.5 fL (80-100); Monocytes Absolute Auto 400 /uL (0-900); Monocytes Percent Auto 5.2 % (3-14); Neutrophils Absolute Auto 5800 /uL (1500-7000); Neutrophils Percent Auto 71.8 % (50-75); Platelet Count 202 X10^3/uL (150-400); Red Blood Cell Count 3.79 X10^6/uL (4.0-5.2); Red Cell Distribution Width 15.4 % (11.6-14.8)
[2025-02-05 14:43] LABS: BUN Creatinine Ratio 20.5 (6-22); Blood Urea Nitrogen 23 mg/dL (7-17); Calcium 9.1 mg/dL (8.4-10.2); Carbon Dioxide 25 mmol/L (22-32); Chloride 108 mmol/L (98-107); Estimated Glomerular Filt Rate 53 mL/min (>60); Glucose 86 mg/dL (80-110); HEMOLYSIS < 15 (0-50); Potassium 4.1 mmol/L (3.4-5.1); Sodium 140 mmol/L (137-145)
[2025-02-05 15:19] LABS: Ferritin 119 ng/mL (11-264)
== END ==
PROVIDERS: PCP Family Medicine; Referring Provider Family Medicine; Visit Provider Family Medicine
DX: D64.9 Anemia, unspecified (principal); R73.03 Prediabetes; I50.9 Heart failure, unspecified; N18.30 Chronic kidney disease, stage 3 unspecified
CPT/HCPCS: 36415; 80048; 82728; 83036; 85025

== ENCOUNTER → 2025-02-27 11:38 | Outpatient (CLI) | payer MEDICARE, SELFPAY | PROVIDERS: PCP Family Medicine; Visit Provider Family Medicine | DX: R30.0 Dysuria (principal); R39.89 Other symptoms and signs involving the genitourinary system | CPT/HCPCS: 87077; 87086; 87186 ==

== ENCOUNTER → 2025-06-26 11:11 | Outpatient (CLI) | payer MEDICARE, SELFPAY ==
[2025-06-26 19:24] LABS: Add Manual Diff / Slide Review NO; Hematocrit 36.3 % (36-46); Hemoglobin 12.0 g/dL (12.0-16.0); Lymphocytes Absolute Auto 1600 /uL (1100-4500); Mean Corpuscular HGB Conc 33.1 % (30-36); Mean Corpuscular Hemoglobin 29.8 PG (26-34); Mean Corpuscular Volume 89.9 fL (80-100); Platelet Count 211 X10^3/uL (150-400)
[2025-06-26 19:37] LABS: Reticulocyte Count, Percent 0.6 % (1.1-2.6)
[2025-06-26 19:38] LABS: Blood Urea Nitrogen 20 mg/dL (7-17); Calcium 8.8 mg/dL (8.4-10.2); Carbon Dioxide 26 mmol/L (22-32); Chloride 105 mmol/L (98-107); Estimated Glomerular Filt Rate 53 mL/min (>60); Glucose 112 mg/dL (70-99); HEMOLYSIS 15 (0-50); Potassium 3.6 mmol/L (3.4-5.1); Sodium 139 mmol/L (137-145)
== END ==
PROVIDERS: PCP Family Medicine; Visit Provider Family Medicine
DX: I13.0 Hypertensive heart and chronic kidney disease with heart failure and stage 1 through stage 4 chronic kidney disease, or unspecified chronic kidney disease (principal); I50.9 Heart failure, unspecified; D64.9 Anemia, unspecified; N18.30 Chronic kidney disease, stage 3 unspecified; E66.01 Morbid (severe) obesity due to excess calories
CPT/HCPCS: 80048; 85025; 85045

== ENCOUNTER → 2025-08-29 12:31 | Outpatient (CLI) | payer MEDICARE, SELFPAY ==
--- NOTE | 2025-08-29 12:33 | DI.MG.S_ITS ---
MM screening mammo BI: 08/29/2025. BI-RADS: 1 CLINICAL: 70-year old female for bilateral screening mammogram. Tyrer-Cuzick lifetime risk of 7.3%. No personal or first-degree family history of breast cancer. The patient had a prior right breast biopsy. PRIOR EXAMS 08/10/2024, 06/25/2023, 06/07/2023, 07/10/2021, MAMMOGRAPHY TECHNIQUE: 2D and 3D (tomosynthesis) digital mammographic views obtained, with additional images as needed for full coverage. Current study was also evaluated with a Computer Aided Detection (CAD) system. DENSITY C. The breasts are heterogeneously dense, which may obscure small masses. MAMMOGRAPHY FINDINGS Bilateral: No suspicious mass, asymmetry, microcalcification, or other abnormality seen. IMPRESSION: * No evidence of malignancy. RECOMMENDATIONS Bilateral * Annual screening mammography. OVERALL ASSESSMENT CATEGORY BI-RADS-1: Negative. [employer] recommends annual screening mammography beginning at age 40 for women with average risk of breast cancer. ELECTRONICALLY SIGNED: Spencer Cornejo M.D. on 08/29/2025 at 07:03:19 PM PT Interpreting Station ID: [id number]
== END ==
LOC: MAMMO 12:32
PROVIDERS: PCP Family Medicine; Referring Provider Family Medicine; Visit Provider Family Medicine
DX: Z12.31 Encounter for screening mammogram for malignant neoplasm of breast (principal); R92.333 Mammographic heterogeneous density, bilateral breasts
CPT/HCPCS: 77063; 77067